=== PATIENT | male | born 1980 | race American Indian/Alaskan Native ===

== ENCOUNTER 2016-08-25 01:26 | Inpatient (IN) | payer OTHER ==
[2016-08-25] MEDS ORDERED: NACL 0.9% 1000 ML 1,000 ML IV ONE (01:52)
[2016-08-25] MEDS ORDERED: ZOFRAN ODT PO ONE (01:53)
[2016-08-25 02:30] LABS: Basophils % (Auto) 1.5 % (0.0-1.8); Eosinophils % (Auto) 0.1 % (0.0-4.3); Hematocrit 20.7 % (35.5-45.6); Hemoglobin 6.3 gm/dl (11.8-15.2); Mean Corpuscular HGB Conc 31 % (32-34); Mean Corpuscular Hemoglobin 27 pg (28-32); Mean Corpuscular Volume 90 fl (84-94); Platelet Count 60 K/mm3 (140-440); Red Blood Count 2.31 M/mm3 (3.65-5.03); Red Cell Distribution Width 20.3 % (13.2-15.2); White Blood Count 11.9 K/mm3 (4.5-11.0)
[2016-08-25 02:48] LABS: INR 1.47 (0.87-1.13)
[2016-08-25 02:49] LABS: Partial Thromboplastin Time 29.7 Sec. (24.2-36.6)
[2016-08-25 03:04] LABS: Bilirubin,Urine NEG (Negative); Blood,Urine NEG (Negative); Ketones,Urine NEG (Negative); Leukocyte Esterase,Urine NEG (Negative); Mucus,Urine FEW /HPF; Nitrite,Urine NEG (Negative)
[2016-08-25 03:20] LABS: Alanine Aminotransferase 54 units/L (7-56); Albumin 3.4 g/dL (3.9-5); Albumin/Globulin Ratio 1.1 %; Alkaline Phosphatase 64 units/L (35-129); Anion Gap 21 mmol/L; BUN/Creatinine Ratio 23.63; Blood Urea Nitrogen 26 mg/dL (9-20); Calcium 8.3 mg/dL (8.4-10.2); Carbon Dioxide 24 mmol/L (22-30); Chloride 100.3 mmol/L (98-107); Glucose 148 mg/dL (75-100); Lipase 27 units/L (13-60); Potassium 4.5 mmol/L (3.6-5.0); Sodium 141 mmol/L (137-145); Total Protein 6.5 g/dL (6.3-8.2)
[2016-08-25] MEDS ORDERED: PROTONIX IV ONE ×3 (04:41→04:58)
[2016-08-25] MEDS ORDERED: ZOFRAN ONE (04:41)
[2016-08-25] MEDS ORDERED: NACL 0.9% 500 ML 500 ML IV ONE (04:56)
[2016-08-25] MEDS ORDERED: SandoSTATIN 500 MCG in NACL 0.9% 100 ML IV ONE (04:56)
[2016-08-25] MEDS ORDERED: ZOFRAN IV ONE ×2 (04:58→05:00)
--- NOTE | 2016-08-25 05:05 | Emergency Department Report ---
ED GI Bleed HPI - General Chief complaint: GI Bleed Stated complaint: VOMITING BLOOD Time Seen by Provider: 08/25/16 04:45 Source: patient Mode of arrival: Ambulatory Limitations: No Limitations - History of Present Illness Initial comments: This is a 36-year-old gentleman who indicates over the last 3 days he has had on -and-off bleeding. He's had hematemesis times several times as well as hematochezia. He has had some mild GI upset with this as well. He denies any fevers he denies any trauma. He does endorse alcoholism. He did have a GI bleed approximately 2 years ago that was Fairly significant as well. He denies feeling lightheaded or dizzy at this time. Radiation: none Severity scale (0 -10): 8 Improves with: none Worsens with: none Associated Symptoms: nausea, vomiting - Related Data Previous Rx's Medication Instructions Recorded Last Taken Type Thiamine [Vitamin B-1] 100 mg PO QDAY #30 tablet 11/08/14 Unknown Rx Folic Acid [Folvite] 1 mg PO QDAY #30 tablet 06/05/15 Unknown Rx Omeprazole [PriLOSEC] 20 mg PO QDAY #30 capsule. 06/05/15 Unknown Rx Magnesium Oxide [Magnesium] 400 mg PO TID #30 tablet 06/14/15 Unknown Rx amLODIPine [Norvasc] 2.5 mg PO QDAY #30 tablet 06/14/15 Unknown Rx Allergies Allergy/AdvReac Type Severity Reaction Status Date / Time No Known Allergies Allergy Unverified 11/06/14 08:21 ED Review of Systems ROS: Stated complaint: VOMITING BLOOD Other details as noted in HPI Comment: All other systems reviewed and negative Constitutional: denies: chills, fever Eyes: denies: eye pain, eye discharge, vision change ENT: denies: ear pain, throat pain Respiratory: denies: cough, shortness of breath, wheezing Cardiovascular: denies: chest pain, palpitations Endocrine: no symptoms reported Gastrointestinal: abdominal pain, nausea, vomiting, hematemesis, hematochezia. denies: diarrhea Genitourinary: denies: urgency, dysuria Musculoskeletal: denies: back pain, joint swelling, arthralgia Skin: denies: rash, lesions Neurological: denies: headache, weakness, paresthesias Psychiatric: denies: anxiety, depression Hematological/Lymphatic: denies: easy bleeding, easy bruising ED Past Medical Hx - Past Medical History Previous Medical History?: Yes Hx Hypertension: Yes Hx Congestive Heart Failure: No Hx Diabetes: No Hx Headaches / Migraines: Yes Hx Psychiatric Treatment: Yes (schizophrenia) Hx Asthma: No Hx COPD: No 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 - Surgical History Past Surgical History?: Yes Additional Surgical History: left leg - Social History Smoking Status: Current Every Day Smoker Substance Use Type: Alcohol - Medications Home Medications: Home Medications Medication Instructions Recorded Confirmed Last Taken Type Thiamine [Vitamin B-1] 100 mg PO QDAY #30 tablet 11/08/14 06/10/15 Unknown Rx Folic Acid [Folvite] 1 mg PO QDAY #30 tablet 06/05/15 06/10/15 Unknown Rx Omeprazole [PriLOSEC] 20 mg PO QDAY #30 capsule. 06/05/15 06/10/15 Unknown Rx Magnesium Oxide [Magnesium] 400 mg PO TID #30 tablet 06/14/15 Unknown Rx amLODIPine [Norvasc] 2.5 mg PO QDAY #30 tablet 06/14/15 Unknown Rx ED Physical Exam - General Limitations: No Limitations General appearance: alert, in no apparent distress - Head Head exam: Present: atraumatic, normocephalic - Eye Eye exam: Present: normal appearance, EOMI. Absent: scleral icterus - ENT ENT exam: Present: normal exam, normal orophraynx, mucous membranes moist - Neck Neck exam: Present: normal inspection, full ROM. Absent: tenderness, lymphadenopathy - Respiratory Respiratory exam: Present: normal lung sounds bilaterally. Absent: respiratory distress, wheezes, rales - Cardiovascular Cardiovascular Exam: Present: regular rate, normal rhythm. Absent: systolic murmur, diastolic murmur, rubs, gallop - GI/Abdominal GI/Abdominal exam: Present: soft, tenderness (mild epigastric region.), normal bowel sounds - Rectal Rectal exam: Present: deferred - Extremities Exam Extremities exam: Present: normal inspection - Back Exam Back exam: Present: normal inspection. Absent: tenderness, CVA tenderness (R), CVA tenderness (L) - Neurological Exam Neurological exam: Present: alert, oriented X3, other (moves all extremities appropriately.) - Psychiatric Psychiatric exam: Present: normal mood, other (somewhat odd affect.) - Skin Skin exam: Present: warm, dry, intact, normal color. Absent: rash ED Course Vital Signs 08/25/16 08/25/16 08/25/16 01:46 03:21 04:22 Temperature 98.9 F 98.2 F Pulse Rate 97 H 92 H Respiratory 20 20 20 Rate Blood Pressure 148/80 Blood Pressure 135/79 [Left] O2 Sat by Pulse 100 100 99 Oximetry - Reevaluation(s) Reevaluation #1: 08/25/16 05:09 Hemodynamically the patient is quite stable here. He did have emesis 2 while here. Last time was approximately half an hour ago. This was approximately 250 cc of blood mixed with stomach contents. His hemoglobin is noted to be 6.3. BUS and is elevated consistent with upper GI source. I am concerned given his prior history of esophageal varices this is likely variceal bleed as well. Patient has been started on octreotide as well as a Protonix drip. I have crossed him for 2 units of blood. He is receiving IV fluids. A second IV has been placed. He has been informed of serious nature of his condition and the potential for bad outcome if he if we are not aggressively with this. He does endorse again that he has been drinking alcohol regularly. His INR is noted to be somewhat elevated at 1.4. Addition his platelets are low. This seems to be a chronic condition likely related to his alcoholism. Dr. Titus from the hospitalist service was contacted. The lateral gastroenterology has been paged as well. Reevaluation #2: 08/25/16 05:31 Dr. Beckford contacted from GI. ED Medical Decision Making - Lab Data Result diagrams: 08/25/16 01:56 08/25/16 01:56 Critical Care Time: Yes Critical care time in (mins) excluding proc time.: 35 Critical care attestation.: If time is entered above; I have spent that time in minutes in the direct care of this critically ill patient, excluding procedure time. ED Disposition Clinical Impression: Esophageal varices with bleeding Qualifiers: Esophageal varices type: unspecified type Qualified Code(s): I85.01 - Esophageal varices with bleeding Disposition: OP ADMITTED IP TO THIS HOSP Is pt being admited?: Yes Does the pt Need Aspirin: No Condition: Stable Referrals: PRIMARY CARE, [Primary Care Provider] - 3-5 Days Forms: Accompanied Note Time of Disposition: 05:06
[2016-08-25] MEDS: PROTONIX 80 MG in NACL 0.9% 100 ML IV SCH ×2 (05:30→17:44)
[2016-08-25] MEDS ORDERED: ZOFRAN IV PRN (05:47)
[2016-08-25] MEDS ORDERED: ATIVAN IV PRN ×2 (06:21)
--- NOTE | 2016-08-25 06:21 | History and Physical Report ---
History of Present Illness Date of examination: 08/25/16 History of present illness: 34-year-old man with history of alcohol abuse, schizophrenia, hypertension comes emergency room complaining of vomiting black material 2 days, also had of blood per rectum. Patient also complaining of abdominal pain in the lower quadrants which started on Wednesday, described as a crampy pain, intermittent in nature every 10 minutes, intensity 6/10, no radiation any cannot identify exacerbating or relieving factors. Also complaining of leg cramps. His last drink was at midnight Patient denies chest pain, palpitation, shortness of breath, cough, hematochezia, dysuria, frequency, focal weakness, dysarthria, fever chills, polydipsia polyuria, hot or cold intolerance, easy bruisability, or rash or bleeding from mucosal membrane, rhinorrhea, epistaxis, earache, tinnitus, blurry vision, eye discharge, anxiety, depression. Other review of systems negative PAST SURGICAL HISTORY: Leg surgery SOCIAL HISTORY: Daily alcohol use, 2 smoke 2 cigars a day, no drugs FAMILY HISTORY: Hypertension Medications and Allergies Allergies Allergy/AdvReac Type Severity Reaction Status Date / Time No Known Allergies Allergy Unverified 11/06/14 08:21 Home Medications Medication Instructions Recorded Confirmed Last Taken Type Thiamine [Vitamin B-1] 100 mg PO QDAY #30 tablet 11/08/14 06/10/15 Unknown Rx Folic Acid [Folvite] 1 mg PO QDAY #30 tablet 06/05/15 06/10/15 Unknown Rx Omeprazole [PriLOSEC] 20 mg PO QDAY #30 capsule. 06/05/15 06/10/15 Unknown Rx Magnesium Oxide [Magnesium] 400 mg PO TID #30 tablet 06/14/15 Unknown Rx amLODIPine [Norvasc] 2.5 mg PO QDAY #30 tablet 06/14/15 Unknown Rx Active Meds: Active Medications Acetaminophen (Tylenol) 650 mg PO Q4H PRN PRN Reason: Pain MILD(1-3)/Fever >100.5/ALMAZAN Octreotide Acetate 500 mcg/ (Sodium Chloride) 101 mls @ 10.1 mls/hr IV ONCE.ED ONE; 50 MCG/HR PRN Reason: Protocol Stop: 08/25/16 14:55 Pantoprazole Sodium 80 mg/ (Sodium Chloride) 100 mls @ 10 mls/hr IV DIRECT BRYAN PRN Reason: 8 MG/HR Sodium Chloride (Nacl 0.9% 1000 Ml) 1,000 mls @ 150 mls/hr IV DIRECT BRYAN Ondansetron HCl (Zofran) 4 mg IV Q4H PRN PRN Reason: N/V unrelieved by Reglan Exam - Physical Exam Narrative exam: Gen. appearance: Patient lying in bed, no apparent distress HEENT: Normocephalic, atraumatic, pupils equally round and reactive to light, extraocular movement intact, and no sclericterus,. No JVD or thyromegaly or nodule,neck supple, no carotid bruit ,mucous membranes moist, no exudate or erythema Heart: S1, S2, regular rate and rhythm Lungs: Clear to auscultation bilaterally, breathing comfortable Abdomen: Positive bowel sounds, tender in lower quadrant, nondistended, no organomegaly Extremity: No edema, cyanosis, clubbing Skin: No rash, nodules, warm, dry Neuro: Oriented 3, cranial nerves II-12 intact, speech is fluent, motor and sensory intact - Constitutional Vitals: Temp Pulse Resp BP Pulse Ox 97.9 F 91 H 18 132/80 99 08/25/16 05:52 08/25/16 05:52 08/25/16 05:52 08/25/16 05:52 08/25/16 05:52 Results - Labs CBC & Chem 7: 08/25/16 01:56 08/25/16 01:56 Labs: Abnormal lab results 08/25/16 08/25/16 08/25/16 Range/Units 01:56 01:56 01:56 WBC 11.9 H (4.5-11.0) K/mm3 RBC 2.31 L (3.65-5.03) M/mm3 Hgb 6.3 L (11.8-15.2) gm/dl Hct 20.7 L (35.5-45.6) % MCH 27 L (28-32) pg MCHC 31 L (32-34) % RDW 20.3 H (13.2-15.2) % Plt Count 60 L (140-440) K/mm3 Hancock % (Auto) 8.6 H (0.0-7.3) % Hancock # 1.0 H (0.0-0.8) K/mm3 Baso # 0.2 H (0.0-0.1) K/mm3 Seg Neutrophils % 72.6 H (40.0-70.0) % Seg Neutrophils # 8.6 H (1.8-7.7) K/mm3 PT 17.8 H (12.2-14.9) Sec. INR 1.47 H (0.87-1.13) BUN 26 H (9-20) mg/dL Glucose 148 H (75-100) mg/dL Calcium 8.3 L (8.4-10.2) mg/dL Total Bilirubin 2.00 H (0.1-1.2) mg/dL AST 137 H (5-40) units/L Albumin 3.4 L (3.9-5) g/dL Crossmatch 08/25/16 Range/Units 01:58 WBC (4.5-11.0) K/mm3 RBC (3.65-5.03) M/mm3 Hgb (11.8-15.2) gm/dl Hct (35.5-45.6) % MCH (28-32) pg MCHC (32-34) % RDW (13.2-15.2) % Plt Count (140-440) K/mm3 Hancock % (Auto) (0.0-7.3) % Hancock # (0.0-0.8) K/mm3 Baso # (0.0-0.1) K/mm3 Seg Neutrophils % (40.0-70.0) % Seg Neutrophils # (1.8-7.7) K/mm3 PT (12.2-14.9) Sec. INR (0.87-1.13) BUN (9-20) mg/dL Glucose (75-100) mg/dL Calcium (8.4-10.2) mg/dL Total Bilirubin (0.1-1.2) mg/dL AST (5-40) units/L Albumin (3.9-5) g/dL Crossmatch See Detail Assessment and Plan GIB, rule out varices versus ulcer Anemia secondary to blood loss Abdominal pain Thrombocytopenia Alcohol abuse Admits medicine Start IV fluid, transfuse packed red blood cells Protonix, octreotide drip, order serial hemoglobin Consult GI, obtain CAT scan of the abdomen and pelvis Start CIWA protocol with IV Ativan Due to prophylaxis with SCD Prognosis guarded
[2016-08-25] MEDS: NACL 0.9% 1000 ML 1,000 ML IV SCH ×3 (06:28→23:43)
--- NOTE | 2016-08-25 06:32 | Cat Scan Report ---
FINAL REPORT PROCEDURE: CT ABDOMEN PELVIS WO CON TECHNIQUE: Computerized axial tomography of the abdomen and pelvis was performed without intravenous contrast. This study is performed without intravascular contrast material and its sensitivity for abdominal and pelvic pathology, including neoplasms, inflammation, abscess, free fluid, thrombosis, arterial dissection and infarction, is reduced compared with a contrast enhanced study. HISTORY: abd pain gib COMPARISON: No prior studies are available for comparison. FINDINGS: Visualized lower thorax: No significant abnormality. Liver: There is fatty infiltration of the liver. The liver is slightly enlarged. There some inhomogeneous attenuation of the liver, cirrhosis is suspected. Spleen: Normal size and attenuation. Gallbladder and biliary system: Normal. Pancreas: Normal. Adrenals: Normal. Kidneys: No hydronephrosis. Small 1 millimeter stone in the inferior left renal cortex.. GI tract: No obstruction. No ileus or enteritis. The cecum, appendix and colon are normal.. Lymph nodes and mesentery: Normal. Vasculature: Normal. Bladder: Normal. Reproductive organs: Normal. Peritoneum: No free fluid. Musculoskeletal structures: No significant abnormality. Other: None. IMPRESSION: There is no evidence of intestinal or urinary tract obstruction. No ileus or enteritis. The appendix is normal. Left renal calculi is noted as discussed. The liver is enlarged in fatty infiltration. The liver as inhomogeneous attenuation consistent with cirrhosis..
--- NOTE | 2016-08-25 06:56 | Admit Criteria Form ---
Admission Criteria Documentation: GASTROINTESTINAL BLEEDING, UPPER Clinical Indications for Admission to Inpatient Care ( Place 'X' for any and all applicable criteria): Admission is indicated for ANY ONE of the following(1)(2)(3)(4)(5)(6): [X]I. Active bleeding (eg, fresh voluminous blood in emesis or nasogastric aspirate) [ ]II. Associated conditions requiring hospitalization (eg, perforation, obstruction from ulcer) [ ]III. Inpatient admission required rather than observation care (Also use Gastrointestinal Bleeding, Upper: Observation Care as appropriate) because of ANY ONE of the following: [ ]a) Hemodynamic instability that is severe or persistent [ ]b) Anemia requiring inpatient admission as indicated by ALL of the following: [ ]1) Presence of significant clinical finding indicated by ANY ONE of the following: [ ]A. Tachycardia for age [ ]B. Orthostatic vital sign changes [ ]C. Cognitive impairment [ ]D. Heart failure [ ]E. Chest pain [ ]F. Exertional dyspnea [ ]G. Other findings suggesting inadequate perfusion (eg, peripheral or myocardial ischemia, end organ dysfunction) [ ]2) Initial (eg, emergency department, observation care) treatment with transfusion or volume replacement is judged inappropriate (due to severity of the finding) or has been ineffective [ ]c) Severe pain requiring acute inpatient management [ ]d) High-risk low platelet count [ ]e) IV fluid to replace significant ongoing losses (greater than 3 L/m2 per day) [ ]f) Immediate inpatient surgery [ ]g) Other condition, treatment or monitoring requiring inpatient admission [ ]IV. Severe liver disease (eg, cirrhosis) [ ]V. Significant active comorbid disease [ ]. Anticoagulation therapy [ ]VII. High-risk endoscopic features (arterial bleeding, adherent clot, nonbleeding visible vessel, varices, flat red spots, ulcer size greater than 2 cm, or portal hypertensive gastropathy) [ ]VIII. Previous aortic graft placement or known aortic aneurysm [ ]IX. Coagulopathy [ ]X. Syncope Extended stay beyond goal length of stay may be needed for(1)(2): [ ]a) Emergency surgery [ ]b) Varices [ ]c) Coagulation abnormalities [ ]d) Recurrent, obscure, or persistent bleeding or continued Hemodynamic instability [ ]e) Associated conditions requiring surgery (eg, perforated gastric ulcer, gastric outlet obstruction) [ ]f) Active comorbidities (eg, renal insufficiency, heart failure, pre- existing liver disease) The original [facility] [employer] content created by [facility] has been revised. The portions of the content which have been revised are identified through the use of italic text or in bold, and [facility] has neither reviewed nor approved the modified material. All other unmodified content is copyright [facility] [employer]. Please see references footnoted in the original [facility] [employer] edition 2016 Admission Criteria Met: Yes
[2016-08-25] MEDS ORDERED: ATIVAN ONE (07:46)
[2016-08-25] MEDS: ATIVAN IV PRN ×2 (07:57→17:47)
--- NOTE | 2016-08-25 09:17 | Gastroenterology Consultation ---
History of Present Illness - Reason for Consult Consult date: 08/25/16 GI bleed Requesting physician: GUS CORTEZ - History of Present Illness The patient is a 36 yo male admitted with hematemesis for 2 days. He has a hx of GI bleeding in the past, but denies any prior upper or lower endoscopy ( though there is a hx of "varices" per old notes; I can find none in the computer ). He does have a multidecade hx of EtOH abuse, and on a CT from today there is probable cirrhosis (but no obvious varices). He does not use NSAIDs, but it is unclear that he is aware of all of his meds. He states he is compliant with his haldol, and today during the interview he is lucid (despite EtOH yesterday) without tremors, AH, or confabulation. He is alert and oriented to self and "hospital." He has had no N/V since arrival in the ICU and vitals are stable after transfusion. He has no chest pain or SOB. He denies prior abdominal surgery. He denies allergies. Past History Past Medical History: other (cirrhosis, schizophrenia) Past Surgical History: No surgical history Social history: alcohol abuse Family history: no significant family history Medications and Allergies Allergies Allergy/AdvReac Type Severity Reaction Status Date / Time No Known Allergies Allergy Unverified 11/06/14 08:21 Home Medications Medication Instructions Recorded Confirmed Last Taken Type Thiamine [Vitamin B-1] 100 mg PO QDAY #30 tablet 11/08/14 08/25/16 Unknown Rx Folic Acid [Folvite] 1 mg PO QDAY #30 tablet 06/05/15 08/25/16 Unknown Rx Omeprazole [PriLOSEC] 20 mg PO QDAY #30 capsule. 06/05/15 08/25/16 Unknown Rx Magnesium Oxide [Magnesium] 400 mg PO TID #30 tablet 06/14/15 08/25/16 Unknown Rx amLODIPine [Norvasc] 2.5 mg PO QDAY #30 tablet 06/14/15 08/25/16 Unknown Rx Active Meds: Active Medications Acetaminophen (Tylenol) 650 mg PO Q4H PRN PRN Reason: Pain MILD(1-3)/Fever >100.5/ALMAZAN Octreotide Acetate 500 mcg/ (Sodium Chloride) 101 mls @ 10.1 mls/hr IV ONCE.ED ONE; 50 MCG/HR PRN Reason: Protocol Stop: 08/25/16 14:55 Last Admin: 08/25/16 05:30 Dose: 50 mcg/hr, 10.1 mls/hr Pantoprazole Sodium 80 mg/ (Sodium Chloride) 100 mls @ 10 mls/hr IV DIRECT BRYAN PRN Reason: 8 MG/HR Last Admin: 08/25/16 05:30 Dose: 8 mg/hr, 10 mls/hr Sodium Chloride (Nacl 0.9% 1000 Ml) 1,000 mls @ 150 mls/hr IV DIRECT BRYAN Last Admin: 08/25/16 06:28 Dose: 150 mls/hr Lorazepam (Ativan) 2 mg IV Q1HR PRN PRN Reason: CIWA-Ar 8-15 Last Admin: 08/25/16 07:57 Dose: 2 mg Lorazepam (Ativan) 4 mg IV Q1HR PRN PRN Reason: CIWA-Ar 16-25 Lorazepam (Ativan) 4 mg IV Q15MIN PRN PRN Reason: CIWA-Ar >25 Ondansetron HCl (Zofran) 4 mg IV Q4H PRN PRN Reason: N/V unrelieved by Reglan Review of Systems - Review of Systems All systems: negative (as noted in the HPI) Exam - Constitutional Vital Signs: Temp Pulse Resp BP Pulse Ox 98.3 F 96 H 16 128/60 100 08/25/16 09:00 08/25/16 08:00 08/25/16 08:00 08/25/16 08:00 08/25/16 08:00 General appearance: no acute distress - EENT Eyes: PERRL, EOM intact ENT: hearing intact, clear oral mucosa, no thrush - Neck Neck: supple, normal ROM - Respiratory Respiratory effort: normal Respiratory: bilateral: CTA - Cardiovascular Rhythm: regular Heart Sounds: Present: S1 & S2 Extremities: no ischemia, No edema - Gastrointestinal General gastrointestinal: Present: soft, non-tender, non-distended - Integumentary Integumentary: Present: clear, warm, dry - Neurologic Neurological: oriented to person, oriented to place, other (No tremors or asterixis) - Labs CBC & Chem 7: 08/25/16 01:56 08/25/16 01:56 Assessment and Plan - Patient Problems (1) Hematemesis Current Visit: Yes Status: Acute Qualifiers: Nausea presence: N Plan to address problem: - Likely varices, but PUD also highly likely. - Will continue octreotide and protonix gtt. - EGD later today when 2nd unit PRBC complete. - Keep NPO except essential meds. - Avoid NSAIDs. (2) Alcoholic cirrhosis of liver without ascites Current Visit: Yes Status: Acute Plan to address problem: - Likley solely EtOH but will recheck hepatitis given substance abuse (+ amphetamines in 2016). - Will start thiamine and folate. - CIWA protocol per IMS. - Abstinance encouraged.
--- NOTE | 2016-08-25 10:17 | Consultation ---
History of Present Illness Consult date: 08/25/16 Reason for consult: other (ICU admission, upper GI bleeding) History of present illness: Called to evaluate case of a 36-year-old -[place] male, admitted to the ICU after she complained of vomiting blood with blood 2 days ago. The patient has some mild sedative/pain medications, so tends to be sleepy during the interview. We poorly, he had been very careful to Wednesday and then he started having episodes of hematemesis. He denies any aspiration cough or respiratory problems. Apparently has been drinking for years. According to GI note possibly some fibrosis changes on CT scan evaluation. Currently, completed PRBC transfusion. No further vomiting noted. His oximetry at the bedside is on a percent without nasal cannula. Reportedly with long-standing history of alcohol and AMPHETAMINE abuse. Past History Past Medical History: other (cirrhosis, schizophrenia, prior GI bleeding episode ) Past Surgical History: No surgical history Social history: alcohol abuse Family history: no significant family history Medications and Allergies Allergies Allergy/AdvReac Type Severity Reaction Status Date / Time No Known Allergies Allergy Unverified 11/06/14 08:21 Home Medications Medication Instructions Recorded Confirmed Last Taken Type Thiamine [Vitamin B-1] 100 mg PO QDAY #30 tablet 11/08/14 08/25/16 Unknown Rx Folic Acid [Folvite] 1 mg PO QDAY #30 tablet 06/05/15 08/25/16 Unknown Rx Omeprazole [PriLOSEC] 20 mg PO QDAY #30 capsule. 06/05/15 08/25/16 Unknown Rx Magnesium Oxide [Magnesium] 400 mg PO TID #30 tablet 06/14/15 08/25/16 Unknown Rx amLODIPine [Norvasc] 2.5 mg PO QDAY #30 tablet 06/14/15 08/25/16 Unknown Rx Active Meds: Active Medications Acetaminophen (Tylenol) 650 mg PO Q4H PRN PRN Reason: Pain MILD(1-3)/Fever >100.5/ALMAZAN Octreotide Acetate 500 mcg/ (Sodium Chloride) 101 mls @ 10.1 mls/hr IV ONCE.ED ONE; 50 MCG/HR PRN Reason: Protocol Stop: 08/25/16 14:55 Last Admin: 08/25/16 05:30 Dose: 50 mcg/hr, 10.1 mls/hr Pantoprazole Sodium 80 mg/ (Sodium Chloride) 100 mls @ 10 mls/hr IV DIRECT BRYAN PRN Reason: 8 MG/HR Last Admin: 08/25/16 05:30 Dose: 8 mg/hr, 10 mls/hr Sodium Chloride (Nacl 0.9% 1000 Ml) 1,000 mls @ 150 mls/hr IV DIRECT BRYAN Last Admin: 08/25/16 06:28 Dose: 150 mls/hr Thiamine HCl 100 mg/ Sodium (Chloride) 51 mls @ 100 mls/hr IV QDAY BRYAN Influenza Virus Vaccine Quadrival (Fluarix Quad [id number](36 Mos+)) 60 mcg IM .ONCE ONE Stop: 08/26/16 09:26 Lorazepam (Ativan) 2 mg IV Q1HR PRN PRN Reason: CIWA-Ar 8-15 Last Admin: 08/25/16 07:57 Dose: 2 mg Lorazepam (Ativan) 4 mg IV Q1HR PRN PRN Reason: CIWA-Ar 16-25 Lorazepam (Ativan) 4 mg IV Q15MIN PRN PRN Reason: CIWA-Ar >25 Multivitamins/Minerals (Theragran-M Tab) 1 each PO QDAY BRYAN Ondansetron HCl (Zofran) 4 mg IV Q4H PRN PRN Reason: N/V unrelieved by Reglan Review of Systems ROS unobtainable: due to mental status Physical Examination Vital signs: Vital Signs Temp Pulse Resp BP Pulse Ox 98.9 F 97 H 20 148/80 100 08/25/16 01:46 08/25/16 01:46 08/25/16 01:46 08/25/16 01:46 08/25/16 01:46 General appearance: no acute distress, other (somnolent) Eyes: non-icteric ENT: oropharynx moist Neck: supple, no lymphadenopathy Effort: normal Ascultation: Bilateral: clear Cardiovascular: regular rate and rhythm Gastrointestinal: normoactive bowel sounds, non-distended Integumentary: normal Extremities: no cyanosis, no edema, pink and warm Musculoskeletal: no deformities non-focal exam, pupils equal and round, CN II-XII normal mood appropriate Results - Laboratory Findings CBC and BMP: 08/25/16 01:56 08/25/16 01:56 PT/INR, D-dimer PT 17.8 Sec. (12.2-14.9) H 08/25/16 01:56 INR 1.47 (0.87-1.13) H 08/25/16 01:56 Assessment and Plan Upper GI bleeding episode. Suspect secondary to esophageal varices per initial assessment Alcohol abuse, amphetamine abuse History of schizophrenia Recommendations Continue monitoring H&H Follow-up vital signs and I /O status Aspiration precautions CIWA protocol and monitor for withdrawal symptoms DVT prophylaxis Varices management per GI recommendations Watch for fever and chest symptoms, update chest x-ray since noted No family members available at the bedside Critical care time was 40 minutes of [id number] evaluation and coordination of care
[2016-08-25] MEDS ORDERED: WATER FOR IRRIG STERILE IR ONE (11:59)
--- NOTE | 2016-08-25 14:25 | Progress Note ---
Assessment and Plan - Patient Problems (1) GI bleeding Current Visit: Yes Status: Acute Qualifiers: GI bleed type/associated pathology: G Gastritis type: G Plan to address problem: GI consulted. Endoscopy as per GI service, ppi therapy, supportive care. The high probability of a clinically significant, sudden or life threatening deterioration of the [GI, cardiac, hematologic] system(s) required my full and direct attention, intervention and personal management. The aggregate critical care time was [65] minutes. This time is in addition to time spent performing reported procedures but includes the following: [x] Data Review and interpretation [x] Patient assessment and monitoring of vital signs [x] Documentation [x] Medication orders and management (2) Blood loss anemia Current Visit: Yes Status: Acute Plan to address problem: PRBC transfusion, ppi therapy, cbc in am. (3) Alcoholic cirrhosis of liver without ascites Current Visit: Yes Status: Acute Plan to address problem: GI consulted. CIWA protocol. Pt counseled regarding etoh cessation. (4) DVT prophylaxis Current Visit: No Status: Acute History Interval history: Pt lying in bed, Pt mother at bedside, Pt denies pain,Hematemesis, BRBPR, NVD. No reported nursing events. Hospitalist Physical - Constitutional Vitals: Temp Pulse Resp BP Pulse Ox 98.3 F 83 12 126/72 100 08/25/16 12:02 08/25/16 14:11 08/25/16 14:11 08/25/16 14:11 08/25/16 14:11 General appearance: Present: no acute distress - EENT Eyes: Present: PERRL, EOM intact ENT: hearing intact - Neck Neck: Present: supple, normal ROM - Respiratory Respiratory effort: normal Respiratory: bilateral: CTA - Cardiovascular Rhythm: regular Heart Sounds: Present: S1 & S2 - Extremities Extremities: no ischemia Peripheral Pulses: within normal limits - Abdominal General gastrointestinal: soft, non-tender, non-distended - Integumentary Integumentary: Present: clear, dry - Psychiatric Psychiatric: appropriate mood/affect - Neurologic Neurologic: CNII-XII intact Results - Labs CBC & Chem 7: 08/25/16 01:56 08/25/16 01:56 Labs: Laboratory Last Values WBC 11.9 K/mm3 (4.5-11.0) H 08/25/16 01:56 RBC 2.31 M/mm3 (3.65-5.03) L 08/25/16 01:56 Hgb 6.3 gm/dl (11.8-15.2) L 08/25/16 01:56 Hct 20.7 % (35.5-45.6) L 08/25/16 01:56 MCV 90 fl (84-94) 08/25/16 01:56 MCH 27 pg (28-32) L 08/25/16 01:56 MCHC 31 % (32-34) L 08/25/16 01:56 RDW 20.3 % (13.2-15.2) H 08/25/16 01:56 Plt Count 60 K/mm3 (140-440) L 08/25/16 01:56 Lymph % (Auto) 17.2 % (13.4-35.0) 08/25/16 01:56 Lewis % (Auto) 8.6 % (0.0-7.3) H 08/25/16 01:56 Eos % (Auto) 0.1 % (0.0-4.3) 08/25/16 01:56 Baso % (Auto) 1.5 % (0.0-1.8) 08/25/16 01:56 Lymph # 2.0 K/mm3 (1.2-5.4) 08/25/16 01:56 Lewis # 1.0 K/mm3 (0.0-0.8) H 08/25/16 01:56 Eos # 0.0 K/mm3 (0.0-0.4) 08/25/16 01:56 Baso # 0.2 K/mm3 (0.0-0.1) H 08/25/16 01:56 Seg Neutrophils % 72.6 % (40.0-70.0) H 08/25/16 01:56 Seg Neutrophils # 8.6 K/mm3 (1.8-7.7) H 08/25/16 01:56 PT 17.8 Sec. (12.2-14.9) H 08/25/16 01:56 INR 1.47 (0.87-1.13) H 08/25/16 01:56 APTT 29.7 Sec. (24.2-36.6) 08/25/16 01:56 Sodium 141 mmol/L (137-145) 08/25/16 01:56 Potassium 4.5 mmol/L (3.6-5.0) 08/25/16 01:56 Chloride 100.3 mmol/L (98-107) 08/25/16 01:56 Carbon Dioxide 24 mmol/L (22-30) 08/25/16 01:56 Anion Gap 21 mmol/L 08/25/16 01:56 BUN 26 mg/dL (9-20) H 08/25/16 01:56 Creatinine 1.1 mg/dL (0.8-1.5) 08/25/16 01:56 Estimated GFR > 60 ml/min 08/25/16 01:56 BUN/Creatinine Ratio 23.63 % 08/25/16 01:56 Glucose 148 mg/dL (75-100) H 08/25/16 01:56 Calcium 8.3 mg/dL (8.4-10.2) L 08/25/16 01:56 Total Bilirubin 2.00 mg/dL (0.1-1.2) H 08/25/16 01:56 AST 137 units/L (5-40) H 08/25/16 01:56 ALT 54 units/L (7-56) 08/25/16 01:56 Alkaline Phosphatase 64 units/L (35-129) 08/25/16 01:56 Total Protein 6.5 g/dL (6.3-8.2) 08/25/16 01:56 Albumin 3.4 g/dL (3.9-5) L 08/25/16 01:56 Albumin/Globulin Ratio 1.1 % 08/25/16 01:56 Lipase 27 units/L (13-60) 08/25/16 01:56 Urine Color Yellow (Yellow) 08/25/16 02:49 Urine Turbidity Clear (Clear) 08/25/16 02:49 Urine pH 6.0 (5.0-7.0) 08/25/16 02:49 Ur Specific Mason 1.018 (1.003-1.030) 08/25/16 02:49 Urine Protein 30 mg/dl mg/dL (Negative) 08/25/16 02:49 Urine Glucose (UA) Neg mg/dL (Negative) 08/25/16 02:49 Urine Ketones Neg mg/dL (Negative) 08/25/16 02:49 Urine Blood Neg (Negative) 08/25/16 02:49 Urine Nitrite Neg (Negative) 08/25/16 02:49 Urine Bilirubin Neg (Negative) 08/25/16 02:49 Urine Urobilinogen 4.0 mg/dL (<2.0) 08/25/16 02:49 Ur Leukocyte Esterase Neg (Negative) 08/25/16 02:49 Urine WBC (Auto) 1.0 /HPF (0.0-6.0) 08/25/16 02:49 Urine RBC (Auto) 1.0 /HPF (0.0-6.0) 08/25/16 02:49 Urine Mucus Few /HPF 08/25/16 02:49 Blood Type O POSITIVE 08/25/16 01:58 Antibody Screen TNR 08/25/16 01:58 DEVAUGHN Antibody Screen Negative 08/25/16 01:58 Crossmatch See Detail 08/25/16 01:58
[2016-08-25] MEDS: VITAMIN B-1 100 MG in NACL 0.9% 50 ML IV SCH (14:45)
[2016-08-25] MEDS: THERAGRAN-M Tab PO SCH (14:46)
[2016-08-25] MEDS ORDERED: DIPRIVAN 10 MG/ML IV ONE ×4 (14:55→15:31)
[2016-08-25] MEDS ORDERED: NACL 0.9% 1000 ML 1,000 ML ONE (14:56)
--- NOTE | 2016-08-25 15:50 | Post Operative Note ---
Pre-op diagnosis: GI Bleed Post-op diagnosis: other (Esophageal/Gastric varices) Findings: 1. 1 column Grade II EV, attempted band but not enough tissue to suction (? volume depletion) 2. Developing gastric varices in the fundus Procedure: EGD Anesthesia: MAC Surgeon: ESME ARIZA Estimated blood loss: none Pathology: none Specimen disposition: other (N/A) Condition: stable Disposition: ICU (Recs: 1. Continue Resuscitation and octreotide/protonix. 2. Clear liquid diet. 3. Repeat EGD tomorrow when more volume resuscitated: varices may be more prominant and amenable to banding. 4. Continue CIWA and MVI therapy.)
--- NOTE | 2016-08-25 15:54 | Anesthesia Consultation ---
Anesthesia Consult and Med Hx Date of service: 08/25/16 - Airway Anesthetic Teeth Evaluation: Good ROM Head & Neck: Adequate Mental/Hyoid Distance: Adequate Mallampati Class: Class II Intubation Access Assessment: Probably Good - Pulmonary Exam CTA: Yes - Cardiac Exam Cardiac Exam: RRR - Pre-Operative Health Status ASA Pre-Surgery Classification: ASA4 Proposed Anesthetic Plan: MAC - Pulmonary Hx Smoking: Yes Hx Asthma: No COPD: No Hx Pneumonia: No - Cardiovascular System Hx Hypertension: Yes - Central Nervous System Hx Back Pain: Yes - Endocrine Hx End Stage Renal Disease: No - Other Systems Hx Alcohol Use: Yes Hx Cancer: No
--- NOTE | 2016-08-25 15:55 | Anesthesia Day of Surgery ---
Anesthesia Day of Surgery - Day of Surgery Patient Examined: Yes Patient H&P Reviewed: Yes Patient is NPO: Yes
[2016-08-25] MEDS ORDERED: PROTONIX 80 MG in NACL 0.9% 100 ML IV SCH (18:00)
[2016-08-25] MEDS ORDERED: SandoSTATIN 500 MCG in NACL 0.9% 100 ML IV SCH (18:00)
[2016-08-25] MEDS: SANDOSTATIN IV SCH (18:22)
[2016-08-25] MEDS: NACL 0.9% IV SCH (18:22)
--- NOTE | 2016-08-25 19:57 | Operative Report ---
PROCEDURE PERFORMED: Esophagogastroduodenoscopy with attempted variceal banding. ENDOSCOPIST: Buck Grace MD INSTRUMENT: deskwolf video endoscope. MEDICATIONS: MAC anesthesia by [facility]hesia [facility]. COMPLICATIONS: No apparent complications. ESTIMATED BLOOD LOSS: None. SPECIMENS: None. IMPLANTS: None. CONDITION AT COMPLETION: Stable. TECHNIQUE: The patient was informed of the risks and benefits of the procedure. He signed the informed consent to proceed. He was placed in the left lateral decubitus position. The above sedative medications were given. His vital signs remained stable throughout the procedure. The instrument was advanced from the mouth to the second portion of the duodenum under direct visualization. At that point, the bowel was insufflated and the endoscope was slowly withdrawn. FINDINGS: 1. Normal duodenum and antrum of the stomach. 2. No blood and no blood clots in the upper GI tract. 3. Developing gastric varices in the fundus and the cardia of the stomach, but very mild. 4. One column of grade 2 esophageal varices in the lower third of the esophagus; we attempted to band this varix, but there was not enough tissue to safely grab in the autoglazier. RECOMMENDATIONS: 1. Continue volume resuscitation as well as octreotide and Protonix drips. 2. Clear liquid diet. 3. Repeat upper endoscopy tomorrow when the patient is more volume resuscitated; this may allow varices to become more prominent and amenable to banding. 4. Continue ____ and multivitamin therapy. JOB# [id number] TERA/NTS
[2016-08-25 22:01] LABS: Hematocrit 24.4 % (35.5-45.6); Hemoglobin 7.7 gm/dl (11.8-15.2)
[2016-08-26 00:56] LABS: Hematocrit 24.7 % (35.5-45.6); Hemoglobin 7.8 gm/dl (11.8-15.2)
[2016-08-26] MEDS: ATIVAN IV PRN ×3 (01:09→21:31)
[2016-08-26] MEDS: SANDOSTATIN IV SCH (01:11)
[2016-08-26] MEDS: NACL 0.9% IV SCH (01:11)
[2016-08-26 05:14] LABS: Basophils % (Auto) 2.4 % (0.0-1.8); Eosinophils % (Auto) 1.5 % (0.0-4.3); Hematocrit 25.8 % (35.5-45.6); Hemoglobin 8.2 gm/dl (11.8-15.2); Mean Corpuscular HGB Conc 32 % (32-34); Mean Corpuscular Hemoglobin 29 pg (28-32); Mean Corpuscular Volume 90 fl (84-94); Platelet Count 51 K/mm3 (140-440); Red Blood Count 2.86 M/mm3 (3.65-5.03); White Blood Count 5.8 K/mm3 (4.5-11.0)
[2016-08-26 05:37] LABS: Anion Gap 15 mmol/L; BUN/Creatinine Ratio 13.33; Blood Urea Nitrogen 12 mg/dL (9-20); Calcium 6.6 mg/dL (8.4-10.2); Carbon Dioxide 22 mmol/L (22-30); Glucose 111 mg/dL (75-100); Potassium 3.8 mmol/L (3.6-5.0); Sodium 139 mmol/L (137-145)
[2016-08-26] MEDS: NACL 0.9% 1000 ML 1,000 ML IV SCH ×3 (06:26→21:28)
[2016-08-26] MEDS ORDERED: PROTONIX 80 MG in NACL 0.9% 100 ML IV SCH (08:00)
--- NOTE | 2016-08-26 08:26 | Anesthesia Consultation ---
Anesthesia Consult and Med Hx Date of service: 08/26/16 - Airway Anesthetic Teeth Evaluation: Good ROM Head & Neck: Adequate Mental/Hyoid Distance: Adequate Mallampati Class: Class II Intubation Access Assessment: Probably Good - Pre-Operative Health Status ASA Pre-Surgery Classification: ASA4 Proposed Anesthetic Plan: MAC - Pulmonary Hx Smoking: Yes (2-3 cigars/day) Hx Asthma: No COPD: No Hx Pneumonia: No - Cardiovascular System Hx Hypertension: Yes - Central Nervous System Hx Back Pain: Yes Hx Psychiatric Problems: Yes (schizophrenia) - Gastrointestinal Hx Ulcer: Yes (esophageal varices) - Endocrine Hx End Stage Renal Disease: No - Hematic Hx Anemia: Yes Hx Sickle Cell Disease: No - Other Systems Hx Alcohol Use: Yes (EtOH abuse) Hx Substance Use: Yes (amphetamine abuse) Hx Cancer: No - Additional Comments Anesthesia Medical History Comments: EGD attempted 08/25/16 - unable to band varices due to possible fluid depletion.
[2016-08-26] MEDS ORDERED: NACL 0.9% 1000 ML 1,000 ML ONE (09:18)
--- NOTE | 2016-08-26 09:24 | Progress Note ---
Assessment and Plan Upper GI bleeding episode. Underwent EDG with banding placement yesterday Alcohol abuse, amphetamine abuse. On [facility] protocol History of schizophrenia Recommendations Continue monitoring H&H Follow-up vital signs and I /O status Aspiration precautions [facility] protocol and monitor for withdrawal symptoms DVT prophylaxis Follow-up with GI recommendations regarding drips Once off IV drips for bleeding, patient Removed out side of the ICU, if no EtOH withdrawal problems noted No family members available at the bedside Critical care time was 31 minutes of [id number] evaluation and coordination of care Subjective Date of service: 08/26/16 Principal diagnosis: upper GI bleeding, esophageal varices, alcohol abuse Interval history: Feels better. No vomiting or complaints after EDG yesterday. Occasional cough. No fever Objective Vital Signs - 12hr 08/25/16 08/25/16 08/25/16 21:30 21:40 21:51 Temperature Pulse Rate 76 77 78 Respiratory 15 14 14 Rate Respiratory Rate [Bilateral Leg] Blood Pressure 123/80 119/81 119/81 O2 Sat by Pulse 100 98 99 Oximetry 08/25/16 08/25/16 08/25/16 22:00 22:11 22:21 Temperature Pulse Rate 86 78 78 Respiratory 15 15 14 Rate Respiratory 13 Rate [Bilateral Leg] Blood Pressure 119/75 119/75 119/75 O2 Sat by Pulse 99 100 Oximetry 08/25/16 08/25/16 08/25/16 22:31 22:41 22:51 Temperature Pulse Rate 77 76 78 Respiratory 14 14 16 Rate Respiratory Rate [Bilateral Leg] Blood Pressure 119/75 119/75 119/75 O2 Sat by Pulse 100 100 97 Oximetry 08/25/16 08/25/16 08/25/16 23:00 23:11 23:21 Temperature Pulse Rate 82 76 80 Respiratory 13 12 13 Rate Respiratory Rate [Bilateral Leg] Blood Pressure 137/85 137/85 137/85 O2 Sat by Pulse 98 96 100 Oximetry 08/25/16 08/25/16 08/25/16 23:31 23:41 23:51 Temperature Pulse Rate 75 76 84 Respiratory 15 15 20 Rate Respiratory Rate [Bilateral Leg] Blood Pressure 137/85 137/85 137/85 O2 Sat by Pulse 100 98 99 Oximetry 08/26/16 08/26/16 08/26/16 00:00 00:11 00:21 Temperature 98.0 F Pulse Rate 86 82 82 Respiratory 15 15 20 Rate Respiratory Rate [Bilateral Leg] Blood Pressure 127/91 127/91 127/91 O2 Sat by Pulse 99 99 Oximetry 08/26/16 08/26/16 08/26/16 00:31 00:41 00:51 Temperature Pulse Rate 83 80 86 Respiratory 30 H 15 17 Rate Respiratory Rate [Bilateral Leg] Blood Pressure 127/91 127/91 127/91 O2 Sat by Pulse 98 100 99 Oximetry 08/26/16 08/26/16 08/26/16 01:00 01:11 01:21 Temperature Pulse Rate 82 84 84 Respiratory 19 18 16 Rate Respiratory Rate [Bilateral Leg] Blood Pressure 145/103 145/103 145/103 O2 Sat by Pulse 98 97 Oximetry 08/26/16 08/26/16 08/26/16 01:31 01:41 01:51 Temperature Pulse Rate 84 82 79 Respiratory 15 16 17 Rate Respiratory Rate [Bilateral Leg] Blood Pressure 145/103 145/103 145/103 O2 Sat by Pulse 97 97 99 Oximetry 08/26/16 08/26/16 08/26/16 02:00 02:11 02:21 Temperature Pulse Rate 79 78 78 Respiratory 16 15 15 Rate Respiratory Rate [Bilateral Leg] Blood Pressure 122/85 122/85 122/85 O2 Sat by Pulse 99 99 99 Oximetry 08/26/16 08/26/16 08/26/16 02:31 02:41 02:51 Temperature Pulse Rate 76 77 74 Respiratory 17 17 14 Rate Respiratory Rate [Bilateral Leg] Blood Pressure 122/85 122/85 122/85 O2 Sat by Pulse 100 96 97 Oximetry 08/26/16 08/26/16 08/26/16 03:00 03:11 03:21 Temperature Pulse Rate 73 73 77 Respiratory 16 15 14 Rate Respiratory Rate [Bilateral Leg] Blood Pressure 140/92 140/92 140/92 O2 Sat by Pulse 97 97 98 Oximetry 08/26/16 08/26/16 08/26/16 03:31 03:41 03:51 Temperature Pulse Rate 75 79 82 Respiratory 15 16 15 Rate Respiratory Rate [Bilateral Leg] Blood Pressure 140/92 140/92 140/92 O2 Sat by Pulse 99 96 96 Oximetry 08/26/16 08/26/16 08/26/16 04:00 04:11 04:21 Temperature 98.6 F Pulse Rate 81 83 82 Respiratory 16 16 16 Rate Respiratory Rate [Bilateral Leg] Blood Pressure 128/84 128/84 128/84 O2 Sat by Pulse 96 96 97 Oximetry 08/26/16 08/26/16 08/26/16 04:31 04:41 04:51 Temperature Pulse Rate 81 80 77 Respiratory 17 14 14 Rate Respiratory Rate [Bilateral Leg] Blood Pressure 128/84 128/84 128/84 O2 Sat by Pulse 98 100 100 Oximetry 08/26/16 08/26/16 08/26/16 05:00 05:11 05:21 Temperature Pulse Rate 75 77 75 Respiratory 14 16 15 Rate Respiratory Rate [Bilateral Leg] Blood Pressure 132/84 132/84 132/84 O2 Sat by Pulse 98 100 Oximetry 08/26/16 08/26/16 08/26/16 05:31 05:41 05:51 Temperature Pulse Rate 77 76 72 Respiratory 17 14 14 Rate Respiratory Rate [Bilateral Leg] Blood Pressure 132/84 132/84 132/84 O2 Sat by Pulse 99 98 99 Oximetry 08/26/16 08/26/16 08/26/16 06:00 07:00 08:00 Temperature Pulse Rate 73 76 75 Respiratory 14 15 15 Rate Respiratory Rate [Bilateral Leg] Blood Pressure 143/85 136/91 139/90 O2 Sat by Pulse 99 Oximetry 08/26/16 08:41 Temperature Pulse Rate Respiratory Rate Respiratory Rate [Bilateral Leg] Blood Pressure O2 Sat by Pulse 97 Oximetry Constitutional: no acute distress, alert, other (NG tube in position) Eyes: non-icteric ENT: oropharynx moist Neck: supple, no lymphadenopathy Effort: normal Ascultation: Bilateral: clear Cardiovascular: regular rate and rhythm Gastrointestinal: normoactive bowel sounds, non-distended Integumentary: normal Extremities: no cyanosis, no edema, pink and warm Neurologic: non-focal exam, pupils equal and round, CN II-XII normal Psychiatric: mood appropriate CBC and BMP: 08/26/16 04:30 08/26/16 04:30 ABG, PT/INR, D-dimer: PT/INR, D-dimer PT 17.8 Sec. (12.2-14.9) H 08/25/16 01:56 INR 1.47 (0.87-1.13) H 08/25/16 01:56 Abnormal lab findings: Abnormal Labs 08/25/16 08/26/16 08/26/16 21:20 00:14 04:30 RBC 2.86 L Hgb 7.7 L 7.8 L 8.2 L Hct 24.4 L 24.7 L 25.8 L RDW 18.0 H Plt Count 51 L Brown % (Auto) 8.1 H Baso % (Auto) 2.4 H Glucose Calcium 08/26/16 04:30 RBC Hgb Hct RDW Plt Count Brown % (Auto) Baso % (Auto) Glucose 111 H Calcium 6.6 L D
[2016-08-26] MEDS: VITAMIN B-1 100 MG in NACL 0.9% 50 ML IV SCH (09:57)
[2016-08-26] MEDS ORDERED: FLUARIX QUAD 2016-2017(36 MOS+) IM ONE (12:00)
[2016-08-26 13:13] LABS: Hematocrit 26.3 % (35.5-45.6); Hemoglobin 8.5 gm/dl (11.8-15.2)
[2016-08-26] MEDS ORDERED: DIPRIVAN 10 MG/ML IV ONE ×3 (13:30→13:35)
[2016-08-26] MEDS: THERAGRAN-M Tab PO SCH (13:37)
[2016-08-26] MEDS ORDERED: XYLOCAINE MPF 2% ONE (13:55)
--- NOTE | 2016-08-26 14:23 | Operative Report ---
Operative Report Operative Report: Date of procedure: 08/26/2016 Procedure: Esophagogastroduodenoscopy with banding of esophageal varices. Preprocedure diagnosis: [GI bleeding, history of esophageal varices. ] Post procedure diagnosis: 1-2+ distal esophageal varices, mild portal hypertension gastropathy. Endoscopist: Dr. Beckford Anesthesia: Monitored anesthesia care per anesthesia department Medications: Propofol per anesthesia Estimated blood loss: 0 After careful discussion of the nature and purpose of the procedure as well as details the technique risks benefits and alternatives consent was obtained. The patient was placed in the left lateral decubitus position and medicated per anesthesia. The tip of the [employer] 570 video scope was passed per orum under direct vision into the esophagus and advanced into the stomach and descending duodenum. The descending duodenum the duodenal bulb and pylorus were symmetrical and normal. The scope was withdrawn into the stomach and the stomach then gently insufflated with air. The antrum was normal. The stomach was further insufflated and the scope was then retroflexed and partially withdrawn. The cardia and fundus revealed vascular congestion consistent with mild portal hypertension gastropathy. The body of the stomach was within normal limits and easily distensible.The scope was then withdrawn in the forward position. The esophagogastric junction was at 44 centimeters. 1-2+ distal esophageal varices were present. The mid and proximal esophageal body were normal throughout. The patient's hematemesis and severe anemia requiring transfusion on admission it was elected to band the varices. 2 bands were placed on one column of varices. No bleeding was encountered post-banding. The procedure was was well tolerated and the patient was observed in recovery. Impressions: [Small esophageal varices, banded 2. Mild portal hypertension gastropathy. No varices in the cardia or fundus.] Plan: [Advance diet. Consider for elective colonoscopy as an outpatient] Electronically signed: Shaq Beckford MD
--- NOTE | 2016-08-26 14:27 | Event Note ---
Date: 08/26/16 EGD revealed small esophageal varices and mild portal hypertension gastropathy. Varices were banded x 2. Will advance diet. Stop octreotide and protonix drips. OK to move out of ICU unless needed for ETOH withdrawl.
--- NOTE | 2016-08-26 14:46 | Progress Note ---
Assessment and Plan - Patient Problems (1) GI bleeding Current Visit: Yes Status: Acute Qualifiers: GI bleed type/associated pathology: G Gastritis type: G Plan to address problem: GI consulted. Endoscopy as per GI service, ppi therapy, supportive care. The high probability of a clinically significant, sudden or life threatening deterioration of the [GI, cardiac, hematologic] system(s) required my full and direct attention, intervention and personal management. The aggregate critical care time was [65] minutes. This time is in addition to time spent performing reported procedures but includes the following: [x] Data Review and interpretation [x] Patient assessment and monitoring of vital signs [x] Documentation [x] Medication orders and management (2) Blood loss anemia Current Visit: Yes Status: Acute Plan to address problem: PRBC transfusion, ppi therapy, cbc in am. (3) Alcoholic cirrhosis of liver without ascites Current Visit: Yes Status: Acute Plan to address problem: GI consulted. CIWA protocol. Pt counseled regarding etoh cessation. (4) DVT prophylaxis Current Visit: No Status: Acute History Interval history: Pt lying in bed, Pt mother and sister at bedside, Pt denies fever, chills, pain , hematemesis, BRBPR, NVD. No reported nursing events. Hospitalist Physical - Constitutional Vitals: Temp Pulse Resp BP Pulse Ox 98.6 F 82 16 136/95 82 L 08/26/16 08:00 08/26/16 12:00 08/26/16 12:00 08/26/16 12:00 08/26/16 12:00 General appearance: Present: no acute distress - EENT Eyes: Present: PERRL, EOM intact ENT: hearing intact - Neck Neck: Present: supple - Respiratory Respiratory effort: normal Respiratory: bilateral: CTA - Cardiovascular Rhythm: regular Heart Sounds: Present: S1 & S2 - Extremities Extremities: no ischemia Peripheral Pulses: within normal limits - Abdominal General gastrointestinal: soft, non-distended - Integumentary Integumentary: Present: clear, dry - Psychiatric Psychiatric: appropriate mood/affect, cooperative - Neurologic Neurologic: CNII-XII intact Results - Labs CBC & Chem 7: 08/26/16 12:50 08/26/16 04:30 Labs: Laboratory Last Values WBC 5.8 K/mm3 (4.5-11.0) 08/26/16 04:30 RBC 2.86 M/mm3 (3.65-5.03) L 08/26/16 04:30 Hgb 8.5 gm/dl (11.8-15.2) L 08/26/16 12:50 Hct 26.3 % (35.5-45.6) L 08/26/16 12:50 MCV 90 fl (84-94) 08/26/16 04:30 MCH 29 pg (28-32) 08/26/16 04:30 MCHC 32 % (32-34) 08/26/16 04:30 RDW 18.0 % (13.2-15.2) H 08/26/16 04:30 Plt Count 51 K/mm3 (140-440) L 08/26/16 04:30 Lymph % (Auto) 28.5 % (13.4-35.0) 08/26/16 04:30 [place]key % (Auto) 8.1 % (0.0-7.3) H 08/26/16 04:30 Eos % (Auto) 1.5 % (0.0-4.3) 08/26/16 04:30 Baso % (Auto) 2.4 % (0.0-1.8) H 08/26/16 04:30 Lymph # 1.7 K/mm3 (1.2-5.4) 08/26/16 04:30 Sharkey # 0.5 K/mm3 (0.0-0.8) 08/26/16 04:30 Eos # 0.1 K/mm3 (0.0-0.4) 08/26/16 04:30 Baso # 0.1 K/mm3 (0.0-0.1) 08/26/16 04:30 Seg Neutrophils % 59.5 % (40.0-70.0) 08/26/16 04:30 Seg Neutrophils # 3.4 K/mm3 (1.8-7.7) 08/26/16 04:30 PT 17.8 Sec. (12.2-14.9) H 08/25/16 01:56 INR 1.47 (0.87-1.13) H 08/25/16 01:56 APTT 29.7 Sec. (24.2-36.6) 08/25/16 01:56 Sodium 139 mmol/L (137-145) 08/26/16 04:30 Potassium 3.8 mmol/L (3.6-5.0) 08/26/16 04:30 Chloride 106.0 mmol/L (98-107) 08/26/16 04:30 Carbon Dioxide 22 mmol/L (22-30) 08/26/16 04:30 Anion Gap 15 mmol/L 08/26/16 04:30 BUN 12 mg/dL (9-20) 08/26/16 04:30 Creatinine 0.9 mg/dL (0.8-1.5) 08/26/16 04:30 Estimated GFR > 60 ml/min 08/26/16 04:30 BUN/Creatinine Ratio 13.33 % 08/26/16 04:30 Glucose 111 mg/dL (75-100) H 08/26/16 04:30 Calcium 6.6 mg/dL (8.4-10.2) L D 08/26/16 04:30 Total Bilirubin 2.00 mg/dL (0.1-1.2) H 08/25/16 01:56 AST 137 units/L (5-40) H 08/25/16 01:56 ALT 54 units/L (7-56) 08/25/16 01:56 Alkaline Phosphatase 64 units/L (35-129) 08/25/16 01:56 Total Protein 6.5 g/dL (6.3-8.2) 08/25/16 01:56 Albumin 3.4 g/dL (3.9-5) L 08/25/16 01:56 Albumin/Globulin Ratio 1.1 % 08/25/16 01:56 Lipase 27 units/L (13-60) 08/25/16 01:56 Urine Color Yellow (Yellow) 08/25/16 02:49 Urine Turbidity Clear (Clear) 08/25/16 02:49 Urine pH 6.0 (5.0-7.0) 08/25/16 02:49 Ur Specific [place] 1.018 (1.003-1.030) 08/25/16 02:49 Urine Protein 30 mg/dl mg/dL (Negative) 08/25/16 02:49 Urine Glucose (UA) Neg mg/dL (Negative) 08/25/16 02:49 Urine Ketones Neg mg/dL (Negative) 08/25/16 02:49 Urine Blood Neg (Negative) 08/25/16 02:49 Urine Nitrite Neg (Negative) 08/25/16 02:49 Urine Bilirubin Neg (Negative) 08/25/16 02:49 Urine Urobilinogen 4.0 mg/dL (<2.0) 08/25/16 02:49 Ur Leukocyte Esterase Neg (Negative) 08/25/16 02:49 Urine WBC (Auto) 1.0 /HPF (0.0-6.0) 08/25/16 02:49 Urine RBC (Auto) 1.0 /HPF (0.0-6.0) 08/25/16 02:49 Urine Mucus Few /HPF 08/25/16 02:49 Blood Type O POSITIVE 08/25/16 01:58 Antibody Screen TNR 08/25/16 01:58 DEVAUGHN Antibody Screen Negative 08/25/16 01:58 Crossmatch See Detail 08/25/16 01:58
--- NOTE | 2016-08-26 15:05 | Post Anesthesia Evaluation ---
- Post Anesthesia Evaluation Patient Participated: Yes Airway Patent: Yes Stable Respiratory Function: Yes Nausea/Vomiting: No Temp > 96.8F: Yes Pain Manageable: Yes Adequeate Hydration: Yes Anesthesia Complications: No Block Receding Appropriately: Not Applicable Patient on Ventilator: No
[2016-08-26] MEDS ORDERED: DESYREL PO PRN (18:49)
[2016-08-26 22:10] LABS: Hematocrit 27.7 % (35.5-45.6); Hemoglobin 9.1 gm/dl (11.8-15.2)
[2016-08-27] MEDS: TYLENOL PO PRN
--- NOTE | 2016-08-27 09:57 | Progress Note ---
Assessment and Plan Assessment and plan: GI bleed. EGD revealed small esophageal varices and mild portal hypertension gastropathy. Varices were banded x 2. Will advance diet. We have stopped octreotide and protonix drips. Acute blood loss anemia. Etiology secondary to #1. Patient status post PRBC transfusion. Continue po PPI therapy. Follow-up CBC in a.m. EtOH cirrhosis. Continue CIWA protocol. Patient has been counseled regarding EtOH cessation. History Interval history: No new episodes of bleeding. No complaints of chest pain or shortness of breath. Hospitalist Physical - Constitutional Vitals: Temp Pulse Resp BP Pulse Ox 98.8 F 88 18 142/84 100 08/27/16 07:00 08/27/16 07:00 08/27/16 07:00 08/27/16 07:00 08/27/16 07:00 General appearance: Present: no acute distress - EENT Eyes: Present: PERRL, EOM intact ENT: hearing intact, clear oral mucosa, dentition normal - Neck Neck: Present: supple, normal ROM - Respiratory Respiratory effort: normal Respiratory: bilateral: CTA - Cardiovascular Rhythm: regular Heart Sounds: Present: S1 & S2. Absent: gallop, rub - Extremities Extremities: no ischemia, No edema, Full ROM - Abdominal General gastrointestinal: soft, non-tender, non-distended, normal bowel sounds - Integumentary Integumentary: Present: clear, warm, dry - Neurologic Neurologic: CNII-XII intact, moves all extremities Results - Labs CBC & Chem 7: 08/26/16 20:50 08/26/16 04:30 Labs: Laboratory Last Values WBC 5.8 K/mm3 (4.5-11.0) 08/26/16 04:30 RBC 2.86 M/mm3 (3.65-5.03) L 08/26/16 04:30 Hgb 9.1 gm/dl (11.8-15.2) L 08/26/16 20:50 Hct 27.7 % (35.5-45.6) L 08/26/16 20:50 MCV 90 fl (84-94) 08/26/16 04:30 MCH 29 pg (28-32) 08/26/16 04:30 MCHC 32 % (32-34) 08/26/16 04:30 RDW 18.0 % (13.2-15.2) H 08/26/16 04:30 Plt Count 51 K/mm3 (140-440) L 08/26/16 04:30 Lymph % (Auto) 28.5 % (13.4-35.0) 08/26/16 04:30 [place] % (Auto) 8.1 % (0.0-7.3) H 08/26/16 04:30 Eos % (Auto) 1.5 % (0.0-4.3) 08/26/16 04:30 Baso % (Auto) 2.4 % (0.0-1.8) H 08/26/16 04:30 Lymph # 1.7 K/mm3 (1.2-5.4) 08/26/16 04:30 [place] # 0.5 K/mm3 (0.0-0.8) 08/26/16 04:30 Eos # 0.1 K/mm3 (0.0-0.4) 08/26/16 04:30 Baso # 0.1 K/mm3 (0.0-0.1) 08/26/16 04:30 Seg Neutrophils % 59.5 % (40.0-70.0) 08/26/16 04:30 Seg Neutrophils # 3.4 K/mm3 (1.8-7.7) 08/26/16 04:30 PT 17.8 Sec. (12.2-14.9) H 08/25/16 01:56 INR 1.47 (0.87-1.13) H 08/25/16 01:56 APTT 29.7 Sec. (24.2-36.6) 08/25/16 01:56 Sodium 139 mmol/L (137-145) 08/26/16 04:30 Potassium 3.8 mmol/L (3.6-5.0) 08/26/16 04:30 Chloride 106.0 mmol/L (98-107) 08/26/16 04:30 Carbon Dioxide 22 mmol/L (22-30) 08/26/16 04:30 Anion Gap 15 mmol/L 08/26/16 04:30 BUN 12 mg/dL (9-20) 08/26/16 04:30 Creatinine 0.9 mg/dL (0.8-1.5) 08/26/16 04:30 Estimated GFR > 60 ml/min 08/26/16 04:30 BUN/Creatinine Ratio 13.33 % 08/26/16 04:30 Glucose 111 mg/dL (75-100) H 08/26/16 04:30 POC Glucose 100 (70-105) 08/27/16 06:33 Calcium 6.6 mg/dL (8.4-10.2) L D 08/26/16 04:30 Total Bilirubin 2.00 mg/dL (0.1-1.2) H 08/25/16 01:56 AST 137 units/L (5-40) H 08/25/16 01:56 ALT 54 units/L (7-56) 08/25/16 01:56 Alkaline Phosphatase 64 units/L (35-129) 08/25/16 01:56 Total Protein 6.5 g/dL (6.3-8.2) 08/25/16 01:56 Albumin 3.4 g/dL (3.9-5) L 08/25/16 01:56 Albumin/Globulin Ratio 1.1 % 08/25/16 01:56 Lipase 27 units/L (13-60) 08/25/16 01:56 Urine Color Yellow (Yellow) 08/25/16 02:49 Urine Turbidity Clear (Clear) 08/25/16 02:49 Urine pH 6.0 (5.0-7.0) 08/25/16 02:49 Ur Specific [place] 1.018 (1.003-1.030) 08/25/16 02:49 Urine Protein 30 mg/dl mg/dL (Negative) 08/25/16 02:49 Urine Glucose (UA) Neg mg/dL (Negative) 08/25/16 02:49 Urine Ketones Neg mg/dL (Negative) 08/25/16 02:49 Urine Blood Neg (Negative) 08/25/16 02:49 Urine Nitrite Neg (Negative) 08/25/16 02:49 Urine Bilirubin Neg (Negative) 08/25/16 02:49 Urine Urobilinogen 4.0 mg/dL (<2.0) 08/25/16 02:49 Ur Leukocyte Esterase Neg (Negative) 08/25/16 02:49 Urine WBC (Auto) 1.0 /HPF (0.0-6.0) 08/25/16 02:49 Urine RBC (Auto) 1.0 /HPF (0.0-6.0) 08/25/16 02:49 Urine Mucus Few /HPF 08/25/16 02:49 Blood Type O POSITIVE 08/25/16 01:58 Antibody Screen TNR 08/25/16 01:58 DEVAUGHN Antibody Screen Negative 08/25/16 01:58 Crossmatch See Detail 08/25/16 01:58
[2016-08-27] MEDS ORDERED: PROTONIX PO SCH (10:00)
[2016-08-27] MEDS: VITAMIN B-1 100 MG in NACL 0.9% 50 ML IV SCH (10:00)
--- NOTE | 2016-08-27 18:49 | Gastroenterology Progress Note ---
Assessment and Plan - Patient Problems (1) Alcoholic cirrhosis of liver without ascites Current Visit: Yes Status: Acute Plan to address problem: - Abstinence and daily MVI use encouraged. (2) Esophageal varices with bleeding Current Visit: Yes Status: Acute Qualifiers: Esophageal varices type: unspecified type Qualified Code(s): I85.01 - Esophageal varices with bleeding Plan to address problem: - Continue protonix and MVI heading pinner. - If BP tolerates, recommend nadolol therapy. - Avoid all NSAIDs. - Patient should d/c EtOH. - Will sign off; please call if needed. Subjective Date of service: 08/27/16 Principal diagnosis: esophageal varices, alcohol abuse Interval history: The patient is eating a regular diet without N/V/abdominal pain. He has no more melena and denies CP or SOB. He has had no substernal pain from the banding. Objective - Constitutional Vitals: Temp Pulse Resp BP Pulse Ox 99.8 F H 90 18 133/81 100 08/27/16 16:02 08/27/16 16:02 08/27/16 16:02 08/27/16 16:02 08/27/16 16:02 General appearance: no acute distress - EENT Eyes: PERRL, EOM intact ENT: hearing intact - Respiratory Respiratory effort: normal Respiratory: bilateral: CTA - Cardiovascular Rhythm: regular Heart Sounds: Present: S1 & S2 - Gastrointestinal General gastrointestinal: Present: soft, non-tender, non-distended - Labs CBC & Chem 7: 08/26/16 20:50 08/26/16 04:30 Labs: Laboratory Results - last 24 hr 08/26/16 08/27/16 08/27/16 20:50 06:33 12:06 Hgb 9.1 L Hct 27.7 L POC Glucose 100 100 08/27/16 16:02 Hgb Hct POC Glucose 95
[2016-08-27] MEDS ORDERED: CORGARD PO SCH (19:00)
[2016-08-27] MEDS: NACL 0.9% 1000 ML 1,000 ML IV SCH (19:07)
[2016-08-27] MEDS: HALDOL PO SCH (23:47)
[2016-08-28] MEDS: TYLENOL PO PRN (01:19)
[2016-08-28] MEDS: HALDOL PO SCH (01:19)
[2016-08-28] MEDS: NACL 0.9% 1000 ML 1,000 ML IV SCH (07:24)
--- NOTE | 2016-08-28 07:36 | Discharge Summary ---
Providers - Providers Date of Admission: 08/25/16 05:47 Date of discharge: 08/28/16 Attending physician: JESSICA LEPE Primary care physician: [facility] Hospitalization Reason for admission: gi bleed Condition: Stable Procedures: egd Hospital course: The patient is a 36 yo male admitted with hematemesis for 2 days. He has a hx of GI bleeding in the past, but denied any prior upper or lower endoscopy ( though there is a hx of "varices" per old notes; I can find none in the computer ). He also has a history of EtOH abuse. On admission, a CT scan of the abdomen was completed which revealed cirrhosis. The patient's initial hemoglobin was found to be 6.3. The patient required transfusion and later underwent EGD. Patient was found to have small esophageal varices, banded 2. Mild portal hypertension gastropathy. No varices in the cardia or fundus. Patient's diet was later advanced. Patient was initially treated with octreotide and Protonix drip which were later discontinued. GI recommended Protonix and multivitamin long-term. GI also recommended nadolol therapy. Patient should avoid all NSAIDs and abstinence from alcohol. Patient was felt to have received maximal hospital benefit for discharge. Dedicated discharge time 32 minutes. Disposition: DISCHARGED TO HOME OR SELFCARE Time spent for discharge: 32 Core Measure Documentation - Palliative Care Palliative Care/ Comfort Measures: Not Applicable - Core Measures Any of the following diagnoses?: none Exam - Constitutional Vitals: Temp Pulse Resp BP Pulse Ox 101.1 F H 93 H 18 135/78 100 08/28/16 00:25 08/28/16 00:25 08/28/16 00:25 08/28/16 00:25 08/28/16 00:25 General appearance: Present: no acute distress, well-nourished - EENT Eyes: Present: PERRL ENT: hearing intact, clear oral mucosa - Neck Neck: Present: supple, normal ROM - Respiratory Respiratory effort: normal Respiratory: bilateral: CTA - Cardiovascular Heart Sounds: Present: S1 & S2. Absent: rub, click - Extremities Extremities: pulses symmetrical, No edema Peripheral Pulses: within normal limits - Abdominal General gastrointestinal: Present: soft, non-tender, non-distended, normal bowel sounds Male genitourinary: Present: normal - Integumentary Integumentary: Present: clear, warm, dry - Musculoskeletal Musculoskeletal: gait normal, strength equal bilaterally - Psychiatric Psychiatric: appropriate mood/affect, intact judgment & insight - Neurologic Neurologic: CNII-XII intact, moves all extremities Plan Activity: no restrictions Weight Bearing Status: Full Weight Bearing Diet: regular Special Instructions: other (ETOH abstinence, avoid NSAIDS) Follow up with: PRIMARY CARE, [Primary Care Provider] - 3-5 Days ESME ARIZA MD [Staff Physician] - 7 Days Forms: Accompanied Note Prescriptions: Haloperidol [Haldol] 2 mg PO QHS #30 tablet Multivitamin Tab W-MINERAL [Multiple Vitamin/Mineral (Theragran M)] 1 each PO QDAY #30 tablet Nadolol [Corgard] 20 mg PO QDAY #30 tablet Thiamine [Vitamin B-1] 100 mg PO QDAY #30 tablet traZODone [Desyrel] 100 mg PO QHS PRN #30 tablet PRN Reason: Insomnia
[2016-08-28 09:26] VITALS: BP 125/77
[2016-08-28] MEDS ORDERED: VITAMIN B-1 PO SCH (10:00)
[2016-08-28] MEDS: THERAGRAN-M Tab PO SCH (10:00)
== END 2016-08-28 11:50 | disposition home or self-care (01) | DRG 432 ==
LOC: ED 01:26 → CC1 05:47 → 3A 08-26 23:19
PROVIDERS: ADMIT Internal Medicine; ATTEND Hospitalist
PROC: 0DJ08ZZ Inspection of Upper Intestinal Tract, Via Natural or Artificial Opening Endoscopic (ICD-10-PCS; principal; 2016-08-25)
PROC: 30233N1 Transfusion of Nonautologous Red Blood Cells into Peripheral Vein, Percutaneous Approach (ICD-10-PCS; 2016-08-25)
PROC: 06L34CZ Occlusion of Esophageal Vein with Extraluminal Device, Percutaneous Endoscopic Approach (ICD-10-PCS; 2016-08-26)
DX: K70.30 Alcoholic cirrhosis of liver without ascites (principal); I85.11 Secondary esophageal varices with bleeding; K76.6 Portal hypertension; D62 Acute posthemorrhagic anemia; K92.2 Gastrointestinal hemorrhage, unspecified; K31.89 Other diseases of stomach and duodenum; I10 Essential (primary) hypertension; D69.6 Thrombocytopenia, unspecified; F10.10 Alcohol abuse, uncomplicated; F15.10 Other stimulant abuse, uncomplicated; I86.4 Gastric varices; F17.200 Nicotine dependence, unspecified, uncomplicated; F20.9 Schizophrenia, unspecified; Z82.49 Family history of ischemic heart disease and other diseases of the circulatory system
CPT/HCPCS: 36415; 74176; 80048; 80053; 81001; 82962; 83690; 85014; 85018; 85025; 85610; 85730; 86850; 86900; 86901; 86920; 90686; 93005; 93010; 96361; 96365; 96375; 99406; C9113; J2060; J2354; J2405; J2704; J3411; J7030; J7040; P9016; Q0162

== ENCOUNTER 2017-06-10 16:21 | Emergency (ER) | payer SELFPAY ==
[~2017-06-10 16:21] MED LIST: ATIVAN IM ONE; BENADRYL IM ONE; HALDOL IM ONE
[2017-06-10 17:13] LABS: Basophils # (Auto) 0.1 K/mm3 (0.0-0.1); Basophils % (Auto) 1.1 % (0.0-1.8); Eosinophils % (Auto) 0.2 % (0.0-4.3); Hematocrit 37.6 % (35.5-45.6); Hemoglobin 12.2 gm/dl (11.8-15.2); Lymphocytes # (Auto) 1.1 K/mm3 (1.2-5.4); Lymphocytes % (Auto) 12.5 % (13.4-35.0); Mean Corpuscular HGB Conc 33 % (32-34); Mean Corpuscular Hemoglobin 27 pg (28-32); Mean Corpuscular Volume 82 fl (84-94); Monocytes # (Auto) 1.2 K/mm3 (0.0-0.8); Monocytes % (Auto) 14.4 % (0.0-7.3)
[2017-06-10 17:14] LABS: Platelet Count 98 K/mm3 (140-440); Red Cell Distribution Width 22.4 % (13.2-15.2)
[2017-06-10 17:16] LABS: Bacteria,Urine 1+ /HPF (Negative); Bilirubin,Urine NEG (Negative); Blood,Urine SM (Negative); Color,Urine Amber (Yellow); Hyaline Casts,Urine 1 /LPF; Mucus,Urine FEW /HPF
[2017-06-10 17:20] LABS: Benzodiazepines Screen,Urine PRESUMPTIVE NEGATIVE; Cannabinoid Screen,Urine PRESUMPTIVE NEGATIVE; Cocaine Screen,Urine PRESUMPTIVE NEGATIVE; Methadone Screen,Urine PRESUMPTIVE NEGATIVE; Opiate Screen,Urine PRESUMPTIVE NEGATIVE
[2017-06-10 17:23] LABS: Calcium 9.3 mg/dL (8.4-10.2)
[2017-06-10 17:53] LABS: Amphetamine Screen,Urine PRESUMPTIVE POSITIVE
[2017-06-10] MEDS ORDERED: ATIVAN ONE (18:22)
[2017-06-10] MEDS ORDERED: HALDOL ONE (18:22)
[2017-06-10] MEDS ORDERED: BENADRYL ONE (18:22)
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
[2017-06-11] MEDS ORDERED: NACL 0.9% 1000 ML 2,000 ML IV ONE (14:47)
[2017-06-11] MEDS ORDERED: D5/0.45NS 1,000 ML IV SCH (15:00)
[2017-06-11] MEDS ORDERED: NACL 0.9% 1000 ML 1,000 ML ONE (18:09)
[2017-06-11] MEDS: HALDOL PO SCH ×2 (18:44→22:10)
[2017-06-11] MEDS: DESYREL PO SCH (22:09)
[2017-06-12] MEDS: HALDOL PO SCH ×3 (11:30→22:08)
[2017-06-12] MEDS: DESYREL PO SCH (22:08)
--- NOTE | 2017-06-13 09:32 | Progress Note ---
Subjective - Reason for Consult Consult date: 06/13/17 Reason for consult: Psychiatry Follow-up - Chief Complaint Chief complaint: "Can I go home" 37 y.o. AA male presenting to [facility] for bizarre behavior. Today the patient is calm and cooperative during the assessment. He could not elaborate on what happened prior to his admission to the hospital. He stated that he would like to go home soon. He denies SI/HI's and AVH's. He denies any side effects of his medications. Mental Status Exam - Vital signs Last Vital Signs Temp 97.8 F 06/13/17 08:04 Pulse 75 06/13/17 08:04 Resp 20 06/13/17 08:16 BP 145/103 06/13/17 08:04 Pulse Ox 99 06/13/17 08:16 - Exam Narrative exam: MSE: Appearance: calm, cooperative Behavior: regular eye contact Speech: regular rate and tone Mood: 'okay" Affect: congruent to mood Thought Process: circumstantial Thought Content: denies SI/HI's and AVH's Motor Activity: ambulatory Cognition: A/O x 3 Insight: fair Judgment: fair Assessment and Plan Impression: Per collateral information the patient has a hx of Schizophrenia. Substance Use DO (amphetamines). Today the patient is calm and cooperative during the assessment. Cr 0.8. DDx: R/O Bipolar DO, Delusional DO, R/O Substance Induced Psychosis Recommendation/Plan: Evaluate 1013 in 24 hours to determine proper dispo. Continue Haldol 2 mg PO BID for psychosis and Trazodone 50 mg PO HS for sleep consolidation. Discusses possible EPS side effects of Haldol with patient. Discussed possible suicidality/medication induced trey/priapism with patient reference Trazodone. The patient's mother have some geriatric social work professor questions reference her son. The number of the patient's mother given to the ER Poultry [employer] rep to contact her.
[2017-06-13 10:10] LABS: BUN/Creatinine Ratio 14; Blood Urea Nitrogen 11 mg/dL (9-20); Calcium 8.6 mg/dL (8.4-10.2); Hemolysis Index 1
[2017-06-13] MEDS: HALDOL PO SCH ×2 (10:56→22:11)
[2017-06-13] MEDS: DESYREL PO SCH (22:11)
--- NOTE | 2017-06-14 09:57 | Progress Note ---
Subjective - Reason for Consult Consult date: 06/14/17 Reason for consult: Psychiatry Follow-up - Chief Complaint Chief complaint: "I feel much better" 37 y.o. AA male presenting to [facility] for bizarre behavior. Today the patient is calm and cooperative during the assessment. He stated that he feel so much better today than previous interviews. He stated that he would need a referral to see a psychiatrist once discharge. He stated that he must stay off "drugs." He denies SI/HI's and AVH's. He denies any side effects of his medications. Mental Status Exam - Vital signs Last Vital Signs Temp 98.1 F 06/13/17 20:05 Pulse 62 06/13/17 20:05 Resp 18 06/13/17 20:05 BP 145/98 06/13/17 20:05 Pulse Ox 99 06/13/17 20:05 - Exam Narrative exam: MSE: Appearance: calm, cooperative Behavior: regular eye contact Speech: regular rate and tone Mood: 'okay" Affect: congruent to mood Thought Process: linear Thought Content: denies SI/HI's and AVH's Motor Activity: ambulatory Cognition: A/O x 3 Insight: appropriate Judgment: appropriate Assessment and Plan Impression: Per collateral information the patient has a hx of Schizophrenia. Substance Use DO (amphetamines). Today the patient is calm and cooperative during the assessment. Cr 0.8. DDx: R/O Bipolar DO, Delusional DO, R/O Substance Induced Psychosis Recommendation/Plan: Rescind 1013. Continue Haldol 2 mg PO BID for psychosis and Trazodone 50 mg PO HS for sleep consolidation. Discusses possible EPS side effects of Haldol with patient. Discussed possible suicidality/medication induced trey/priapism with patient reference Trazodone. The patient given outpatient psy/rehab services for [facility].
[2017-06-14] MEDS: HALDOL PO SCH (11:36)
[2017-06-14 19:30] VITALS: BP 157/84
== END 2017-06-14 18:30 ==
LOC: EEVIPCON 16:21 → ED 16:21
DX: F23 Brief psychotic disorder (principal); I10 Essential (primary) hypertension; F17.200 Nicotine dependence, unspecified, uncomplicated
CPT/HCPCS: 36415; 80048; 80307; 81001; 85025; 96360; 96372; 99283; G0480; J1200; J1630; J2060; J7030; 80320

== ENCOUNTER 2019-03-07 07:17 | Emergency (ER) | payer SELFPAY ==
--- NOTE | 2019-03-07 09:49 | Emergency Department Report ---
ED ENT HPI - General Chief complaint: Dental/Oral Stated complaint: LFT SIDE ABCESS/SWELLING/PAIN Time Seen by Provider: 03/07/19 09:14 Source: patient Mode of arrival: Ambulatory Limitations: No Limitations - History of Present Illness Initial comments: 38-year-old -[place] male with past medical history of migraines, hypertension, schizophrenia presents emergency department complaining of the 2 day history of left facial swelling and pain worse with eating palpation. Complaining of odynophagia as well. No fevers, chills, sweats no chest pain palpitations no nausea or vomiting. MD complaint: tooth pain -: Gradual Severity: mild Consistency: constant Improves with: none Worsens with: none Associated Symptoms: toothache, pain with swallowing. denies: cough, tinnitus, discharge from ear, rhinorrhea - Related Data Previous Rx's Medication Instructions Recorded Last Taken Type Haloperidol [Haldol] 2 mg PO QHS #30 tablet 08/28/16 Unknown Rx Multivitamin Tab W-MINERAL 1 each PO QDAY #30 tablet 08/28/16 Unknown Rx [Multiple Vitamin/Mineral (Theragran M)] Nadolol [Corgard] 20 mg PO QDAY #30 tablet 08/28/16 Unknown Rx Thiamine [Vitamin B-1] 100 mg PO QDAY #30 tablet 08/28/16 Unknown Rx traZODone [Desyrel] 100 mg PO QHS PRN #30 tablet 08/28/16 Unknown Rx Bismuth Subsalicylate 10 ml PO Q6H PRN #1 bottle 10/07/17 Unknown Rx [Pepto-Bismol] Famotidine [Pepcid] 20 mg PO BID PRN #30 tablet 10/07/17 Unknown Rx Lisinopril [Zestril] 10 mg PO QDAY #30 tablet 10/07/17 Unknown Rx Ondansetron [Zofran Odt] 4 mg PO Q8H PRN #12 tab.rapdis 10/07/17 Unknown Rx Amoxicillin [Amoxicillin TAB] 875 mg PO BID #20 tablet 03/07/19 Unknown Rx Chlorhexidine Mouthwash [Peridex] 15 ml MM BID #473 bottle 03/07/19 Unknown Rx Lidocaine Viscous 2% 5 ml MM Q3H PRN #120 udc 03/07/19 Unknown Rx Allergies Allergy/AdvReac Type Severity Reaction Status Date / Time No Known Allergies Allergy Unverified 11/06/14 08:21 ED Dental HPI - General Chief complaint: Dental/Oral Stated complaint: LFT SIDE ABCESS/SWELLING/PAIN Time Seen by Provider: 03/07/19 09:14 Source: patient Mode of arrival: Ambulatory Limitations: No Limitations - Related Data Previous Rx's Medication Instructions Recorded Last Taken Type Haloperidol [Haldol] 2 mg PO QHS #30 tablet 08/28/16 Unknown Rx Multivitamin Tab W-MINERAL 1 each PO QDAY #30 tablet 08/28/16 Unknown Rx [Multiple Vitamin/Mineral (Theragran M)] Nadolol [Corgard] 20 mg PO QDAY #30 tablet 08/28/16 Unknown Rx Thiamine [Vitamin B-1] 100 mg PO QDAY #30 tablet 08/28/16 Unknown Rx traZODone [Desyrel] 100 mg PO QHS PRN #30 tablet 08/28/16 Unknown Rx Bismuth Subsalicylate 10 ml PO Q6H PRN #1 bottle 10/07/17 Unknown Rx [Pepto-Bismol] Famotidine [Pepcid] 20 mg PO BID PRN #30 tablet 10/07/17 Unknown Rx Lisinopril [Zestril] 10 mg PO QDAY #30 tablet 10/07/17 Unknown Rx Ondansetron [Zofran Odt] 4 mg PO Q8H PRN #12 tab.rapdis 10/07/17 Unknown Rx Amoxicillin [Amoxicillin TAB] 875 mg PO BID #20 tablet 03/07/19 Unknown Rx Chlorhexidine Mouthwash [Peridex] 15 ml MM BID #473 bottle 03/07/19 Unknown Rx Lidocaine Viscous 2% 5 ml MM Q3H PRN #120 udc 03/07/19 Unknown Rx Allergies Allergy/AdvReac Type Severity Reaction Status Date / Time No Known Allergies Allergy Unverified 11/06/14 08:21 ED Review of Systems ROS: Stated complaint: LFT SIDE ABCESS/SWELLING/PAIN Other details as noted in HPI Comment: All other systems reviewed and negative ED Past Medical Hx - Past Medical History Previous Medical History?: Yes Hx Hypertension: Yes Hx Congestive Heart Failure: No Hx Diabetes: No Hx Sickle Cell Disease: No Hx Headaches / Migraines: Yes Hx Psychiatric Treatment: Yes (schizophrenia) Hx Asthma: No Hx COPD: No 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 - Surgical History Past Surgical History?: Yes Additional Surgical History: left leg - Social History Smoking Status: Current Every Day Smoker Substance Use Type: Alcohol - Medications Home Medications: Home Medications Medication Instructions Recorded Confirmed Last Taken Type Haloperidol [Haldol] 2 mg PO QHS #30 tablet 08/28/16 06/10/17 Unknown Rx Multivitamin Tab W-MINERAL 1 each PO QDAY #30 tablet 08/28/16 06/10/17 Unknown Rx [Multiple Vitamin/Mineral (Theragran M)] Nadolol [Corgard] 20 mg PO QDAY #30 tablet 08/28/16 06/10/17 Unknown Rx Thiamine [Vitamin B-1] 100 mg PO QDAY #30 tablet 08/28/16 06/10/17 Unknown Rx traZODone [Desyrel] 100 mg PO QHS PRN #30 tablet 08/28/16 06/10/17 Unknown Rx Bismuth Subsalicylate 10 ml PO Q6H PRN #1 bottle 10/07/17 Unknown Rx [Pepto-Bismol] Famotidine [Pepcid] 20 mg PO BID PRN #30 tablet 10/07/17 Unknown Rx Lisinopril [Zestril] 10 mg PO QDAY #30 tablet 10/07/17 Unknown Rx Ondansetron [Zofran Odt] 4 mg PO Q8H PRN #12 tab.rapdis 10/07/17 Unknown Rx Amoxicillin [Amoxicillin TAB] 875 mg PO BID #20 tablet 03/07/19 Unknown Rx Chlorhexidine Mouthwash [Peridex] 15 ml MM BID #473 bottle 03/07/19 Unknown Rx Lidocaine Viscous 2% 5 ml MM Q3H PRN #120 udc 03/07/19 Unknown Rx ED Physical Exam - General Limitations: No Limitations General appearance: alert, in no apparent distress - Head Head exam: Present: atraumatic, normocephalic - Eye Eye exam: Present: normal appearance, PERRL, EOMI Pupils: Present: normal accommodation - ENT ENT exam: Present: normal exam, normal orophraynx, mucous membranes moist, TM's normal bilaterally, other (swelling to the left lower mandible region. There is tenderness with palpation. There is a formation of a abscess to the lower mandible border. No peritonsillar abscess is present. Airway is patent. Tongue and uvula are midline. No lymphadenopathy. No Ric's angina.) - Neck Neck exam: Present: normal inspection, full ROM. Absent: tenderness - Respiratory Respiratory exam: Present: normal lung sounds bilaterally. Absent: respiratory distress, wheezes, rales, rhonchi, chest wall tenderness, accessory muscle use - Cardiovascular Cardiovascular Exam: Present: regular rate, normal rhythm. Absent: systolic murmur, diastolic murmur, rubs, gallop - GI/Abdominal GI/Abdominal exam: Present: soft, normal bowel sounds - Rectal Rectal exam: Present: deferred - Extremities Exam Extremities exam: Present: normal inspection - Back Exam Back exam: Present: normal inspection - Neurological Exam Neurological exam: Present: alert, oriented X3 - Psychiatric Psychiatric exam: Present: normal affect, normal mood - Skin Skin exam: Present: warm, dry, intact, normal color. Absent: rash ED Course Vital Signs 03/07/19 07:23 Temperature 98.8 F Pulse Rate 89 Respiratory 18 Rate Blood Pressure 162/116 O2 Sat by Pulse 96 Oximetry - Reevaluation(s) Reevaluation #1: 03/07/19 10:03 Please blood pressure found to be 171/129 and I will treat him with clonidine. Patient does have a headache which may be related to the hypertension but more so believed to be secondary to his dental infection. We will treat his blood pressure in the evaluate Critical care attestation.: If time is entered above; I have spent that time in minutes in the direct care of this critically ill patient, excluding procedure time. ED Disposition Clinical Impression: Dentalgia Disposition: DC-01 TO HOME OR SELFCARE Is pt being admited?: No Does the pt Need Aspirin: No Condition: Stable Instructions: Toothache (ED), Dental Abscess (ED), Dental Caries (ED) Prescriptions: Amoxicillin [Amoxicillin TAB] 875 mg PO BID #20 tablet Lidocaine Viscous 2% 5 ml MM Q3H PRN #120 udc PRN Reason: Pain, Moderate (4-6) Chlorhexidine Mouthwash [Peridex] 15 ml MM BID #473 bottle Referrals: PRIMARY CARE, [Primary Care Provider] - 3-5 Days [facility] [Outside] - 3-5 Days
[2019-03-07] MEDS ORDERED: cloNIDine 0.2 MG TAB PO STA (10:03)
[2019-03-07 10:42] VITALS: BP 150/112
== END 2019-03-07 10:46 | disposition home or self-care (01) ==
LOC: ED 07:17
DX: G43.909 Migraine, unspecified, not intractable, without status migrainosus (principal); K08.89 Other specified disorders of teeth and supporting structures; I10 Essential (primary) hypertension; F20.9 Schizophrenia, unspecified; Z79.899 Other long term (current) drug therapy
CPT/HCPCS: 99282

== ENCOUNTER 2019-03-13 07:18 | Emergency (ER) | payer SELFPAY ==
[2019-03-13 07:32] VITALS: BP 148/108
--- NOTE | 2019-03-13 07:56 | Emergency Department Report ---
- General Chief complaint: Skin/Abscess/Foreign Body Stated complaint: LFT SIDE ABCESS FOLLOW UP Time Seen by Provider: 03/13/19 07:44 Source: patient Mode of arrival: Ambulatory Limitations: No Limitations - History of Present Illness Initial comments: This is a 39-year-old male nontoxic, well nourished in appearance, no acute signs of distress presents to the ED with c/o of follow-up of left facial abscess. Patient was seen last week and was given antibiotics which she seble tirado takes. Patient stated that symptoms are significantly improved and are subsiding of swelling and pain. Patient denies any fever, chills, nausea, vomiting, chest pain, shortness of breath, headache or stiff neck. Patient denies any allergies. MD complaint: abscess/boil -: week(s) Location: face Severity scale (0 -10): 0 Consistency: now resolved Improves with: none Worsens with: none Associated symptoms: denies other symptoms - Related Data Previous Rx's Medication Instructions Recorded Last Taken Type Haloperidol [Haldol] 2 mg PO QHS #30 tablet 08/28/16 Unknown Rx Multivitamin Tab W-MINERAL 1 each PO QDAY #30 tablet 08/28/16 Unknown Rx [Multiple Vitamin/Mineral (Theragran M)] Nadolol [Corgard] 20 mg PO QDAY #30 tablet 08/28/16 Unknown Rx Thiamine [Vitamin B-1] 100 mg PO QDAY #30 tablet 08/28/16 Unknown Rx traZODone [Desyrel] 100 mg PO QHS PRN #30 tablet 08/28/16 Unknown Rx Bismuth Subsalicylate 10 ml PO Q6H PRN #1 bottle 10/07/17 Unknown Rx [Pepto-Bismol] Famotidine [Pepcid] 20 mg PO BID PRN #30 tablet 10/07/17 Unknown Rx Lisinopril [Zestril] 10 mg PO QDAY #30 tablet 10/07/17 Unknown Rx Ondansetron [Zofran Odt] 4 mg PO Q8H PRN #12 tab.rapdis 10/07/17 Unknown Rx Amoxicillin [Amoxicillin TAB] 875 mg PO BID #20 tablet 03/07/19 Unknown Rx Chlorhexidine Mouthwash [Peridex] 15 ml MM BID #473 bottle 11/19/19 Unknown Rx Lidocaine Viscous 2% 5 ml MM Q3H PRN #120 udc 03/07/19 Unknown Rx Allergies Allergy/AdvReac Type Severity Reaction Status Date / Time No Known Allergies Allergy Verified 03/13/19 07:29 Abscess Boil HPI - HPI Chief Complaint: Skin/Abscess/Foreign Body Stated Complaint: LFT SIDE ABCESS FOLLOW UP Time Seen by Provider: 03/13/19 07:44 Home Medications: Previous Rx's Medication Instructions Recorded Last Taken Type Haloperidol [Haldol] 2 mg PO QHS #30 tablet 08/28/16 Unknown Rx Multivitamin Tab W-MINERAL 1 each PO QDAY #30 tablet 08/28/16 Unknown Rx [Multiple Vitamin/Mineral (Theragran M)] Nadolol [Corgard] 20 mg PO QDAY #30 tablet 08/28/16 Unknown Rx Thiamine [Vitamin B-1] 100 mg PO QDAY #30 tablet 08/28/16 Unknown Rx traZODone [Desyrel] 100 mg PO QHS PRN #30 tablet 08/28/16 Unknown Rx Bismuth Subsalicylate 10 ml PO Q6H PRN #1 bottle 10/07/17 Unknown Rx [Pepto-Bismol] Famotidine [Pepcid] 20 mg PO BID PRN #30 tablet 10/07/17 Unknown Rx Lisinopril [Zestril] 10 mg PO QDAY #30 tablet 10/07/17 Unknown Rx Ondansetron [Zofran Odt] 4 mg PO Q8H PRN #12 tab.rapdis 10/07/17 Unknown Rx Amoxicillin [Amoxicillin TAB] 875 mg PO BID #20 tablet 03/07/19 Unknown Rx Chlorhexidine Mouthwash [Peridex] 15 ml MM BID #473 bottle 03/07/19 Unknown Rx Lidocaine Viscous 2% 5 ml MM Q3H PRN #120 udc 03/07/19 Unknown Rx Allergies/Adverse Reactions: Allergies Allergy/AdvReac Type Severity Reaction Status Date / Time No Known Allergies Allergy Verified 03/13/19 07:29 ED Review of Systems ROS: Stated complaint: LFT SIDE ABCESS FOLLOW UP Other details as noted in HPI Constitutional: denies: chills, fever Eyes: denies: eye pain, eye discharge, vision change ENT: denies: ear pain, throat pain Respiratory: denies: cough, shortness of breath, wheezing Cardiovascular: denies: chest pain, palpitations Endocrine: no symptoms reported Gastrointestinal: denies: abdominal pain, nausea, diarrhea Genitourinary: denies: urgency, dysuria Musculoskeletal: denies: back pain, joint swelling, arthralgia Skin: denies: rash, lesions Neurological: denies: headache, weakness, paresthesias Psychiatric: denies: anxiety, depression Hematological/Lymphatic: denies: easy bleeding, easy bruising 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 - Surgical History Additional Surgical History: left leg - Social History Smoking Status: Current Every Day Smoker - Medications Home Medications: Home Medications Medication Instructions Recorded Confirmed Last Taken Type Haloperidol [Haldol] 2 mg PO QHS #30 tablet 08/28/16 06/10/17 Unknown Rx Multivitamin Tab W-MINERAL 1 each PO QDAY #30 tablet 08/28/16 06/10/17 Unknown Rx [Multiple Vitamin/Mineral (Theragran M)] Nadolol [Corgard] 20 mg PO QDAY #30 tablet 08/28/16 06/10/17 Unknown Rx Thiamine [Vitamin B-1] 100 mg PO QDAY #30 tablet 08/28/16 06/10/17 Unknown Rx traZODone [Desyrel] 100 mg PO QHS PRN #30 tablet 08/28/16 06/10/17 Unknown Rx Bismuth Subsalicylate 10 ml PO Q6H PRN #1 bottle 10/07/17 Unknown Rx [Pepto-Bismol] Famotidine [Pepcid] 20 mg PO BID PRN #30 tablet 10/07/17 Unknown Rx Lisinopril [Zestril] 10 mg PO QDAY #30 tablet 10/07/17 Unknown Rx Ondansetron [Zofran Odt] 4 mg PO Q8H PRN #12 tab.rapdis 10/07/17 Unknown Rx Amoxicillin [Amoxicillin TAB] 875 mg PO BID #20 tablet 03/07/19 Unknown Rx Chlorhexidine Mouthwash [Peridex] 15 ml MM BID #473 bottle 03/07/19 Unknown Rx Lidocaine Viscous 2% 5 ml MM Q3H PRN #120 udc 03/07/19 Unknown Rx ED Physical Exam - General Limitations: No Limitations General appearance: alert, in no apparent distress - Head Head exam: Present: atraumatic, normocephalic - Expanded Head Exam Expanded 1 - 0.5 cm swelling noted with no induration or flutance. No pus or drainage. No tendneress. No facial cellulitis. - Eye Eye exam: Present: normal appearance - ENT ENT exam: Present: normal exam - Expanded ENT Exam Expanded Ear exam: Present: normal external inspection Teeth exam: Present: normal inspection, other (no abscess noted) Throat exam: Positive: normal inspection, other (uvula midline). Negative: tonsillar erythema, tonsillomegaly, tonsillar exudate, R peritonsillar mass, L peritonsillar mass - Neck Neck exam: Present: normal inspection, full ROM. Absent: tenderness, meningismus, lymphadenopathy - Extremities Exam Extremities exam: Present: full ROM - Back Exam Back exam: Present: full ROM - Neurological Exam Neurological exam: Present: alert, oriented X3, normal gait - Psychiatric Psychiatric exam: Present: normal affect, normal mood - Skin Skin exam: Present: warm, dry, intact, normal color. Absent: rash ED Course Vital Signs 03/13/19 07:30 Temperature 98.6 F Pulse Rate 77 Respiratory 18 Rate Blood Pressure 148/108 [Left] O2 Sat by Pulse 95 Oximetry - Reevaluation(s) Reevaluation #1: 03/13/19 07:58 Patient is speaking in full sentences with no signs of distress noted. ED Medical Decision Making - Medical Decision Making This is a 39-year-old male that presents with a recheck of abscess. Patient is stable and was examined by me. Upon examination there is no abscess formation. Patient is currently taking antibiotics. He was instructed to continue taking medications as prescribed and instructed during his previous visit. Patient was instructed to Follow-up with a dentist in 3-5 days or if symptoms worsen and continue return to emergency room as soon as possible. At time of discharge, the patient does not seem toxic or ill in appearance. No acute signs of distress noted. Patient agrees to discharge treatment plan of care. No further questions noted by the patient. Critical care attestation.: If time is entered above; I have spent that time in minutes in the direct care of this critically ill patient, excluding procedure time. ED Disposition Clinical Impression: Abscess re-check Disposition: DC- TO HOME OR SELFCARE Is pt being admited?: No Does the pt Need Aspirin: No Condition: Stable Additional Instructions: Follow-up with a dentist in 3-5 days or if symptoms worsen and continue return to emergency room as soon as possible. Continue taking antibiotics as prescribed to you during your previous ED visit. Referrals: PRIMARY CAREMD [Primary Care Provider] - 3-5 Days MELECIO BOWEN MD [Staff Physician] - 3-5 Days [facility] [Outside] - 3-5 Days Forms: Work/School Release Form(ED)
== END 2019-03-13 08:14 | disposition home or self-care (01) ==
LOC: ED 07:18
DX: L02.01 Cutaneous abscess of face (principal); I10 Essential (primary) hypertension; G43.909 Migraine, unspecified, not intractable, without status migrainosus; F20.9 Schizophrenia, unspecified; F17.200 Nicotine dependence, unspecified, uncomplicated; Z79.899 Other long term (current) drug therapy